=== PATIENT | male | born 1970 | race Caucasian/White ===

== ENCOUNTER 2017-07-11 12:57 | Emergency (ER) | payer BC, SELFPAY | END 2017-07-11 14:03 | disposition home or self-care (01) | PROVIDERS: Emergency Provider Nurse Practitioner; Visit Provider Nurse Practitioner | DX: J06.9 Acute upper respiratory infection, unspecified (principal); I10 Essential (primary) hypertension; E78.5 Hyperlipidemia, unspecified | CPT/HCPCS: 87804; 87880; 99201 ==

== ENCOUNTER → 2017-10-15 13:12 | Outpatient (CLI) | payer BC, SELFPAY ==
--- NOTE | 2017-10-15 13:22 | XR_ITS ---
XR KUB CLINICAL INDICATION: ITS.REASON: KIDNEY STONES ORDERING PHYSICIAN: Nj Nation MD PATIENT AGE: 47 years COMPARISON: 05/28/2017 FINDINGS: The bowel gas pattern is nonspecific. There are multiple small left renal calculi measuring up to 4 mm in the upper pole. No obvious ureteral calculi. IMPRESSION: No change left nephrolithiasis
== END ==
PROVIDERS: PCP Family Medicine; Visit Provider Urology
DX: N20.0 Calculus of kidney (principal)
CPT/HCPCS: 74018

== ENCOUNTER → 2017-10-25 07:56 | Outpatient (CLI) | payer BC, SELFPAY ==
--- NOTE | 2017-10-25 07:58 | CT_ITS ---
CT abdomen pelvis wo con COMPARISON: CT scan abdomen pelvis stone protocol 03/10/2017 HISTORY: Left-sided abdominal pain, history of kidney stones TECHNIQUE: Multiaxial scans obtained from hemidiaphragms the pelvic floor and were performed without IV or oral contrast. Sagittal coronal reformats were evaluated as well. FINDINGS: The lower lung jeter are clear. Cardiac size is normal. The liver and spleen appear grossly normal. The stomach is distended with ingested food particles and the gallbladder is contracted. There are no definite gallstones seen. The pancreas is normal. Again noted is the slightly enlarged left adrenal gland the CT number consistent with a cyst or possibly adenoma. It is unchanged in size from the previous exam. Right adrenal gland is normal. The kidneys are normal in size and there are 3-4 tiny 1 to 2 mm nonobstructing calculi left kidney. There are no calculi right kidney. There is no obstructive uropathy of either kidney. Small bowel appears normal. The appendix is normal. There is moderate scattered stool throughout the colon. The urinary bladder is partially decompressed, the prostate is normal. IMPRESSION: 1. Tiny nonobstructing calculi left kidney 2. Stable slightly enlarged left adrenal gland and again likely benign cyst or adenoma. There is no other significant abdominal or pelvic pathology identified
== END ==
PROVIDERS: Family Provider Family Medicine; PCP Family Medicine; Visit Provider Urology
DX: N20.9 Urinary calculus, unspecified (principal); M54.9 Dorsalgia, unspecified
CPT/HCPCS: 74176

== ENCOUNTER → 2018-04-29 11:24 | Outpatient (CLI) | payer BC, SELFPAY ==
--- NOTE | 2018-04-29 11:25 | XR_ITS ---
XR KUB HISTORY: ITS.REASON: Kidney Stones ORDERING PHYSICIAN: Nj Nation MD PATIENT AGE: 47 years COMPARISON: 04/29/2018 FINDINGS: The bowel gas pattern is unremarkable. No obvious obstruction.. There is a 5 mm stone overlying the upper pole of the left kidney and a 1 to 2 mm stone overlying the mid pole the left kidney. No obvious ureteral calculi. There is at least one stone that was present previously overlying the upper pole the left kidney not apparent on today's exam IMPRESSION: Left nephrolithiasis
== END ==
PROVIDERS: PCP Family Medicine; Visit Provider Urology
DX: N20.0 Calculus of kidney (principal); N39.9 Disorder of urinary system, unspecified
CPT/HCPCS: 74018

== ENCOUNTER → 2018-10-14 10:38 | Outpatient (CLI) | payer BC, SELFPAY ==
--- NOTE | 2018-10-14 10:41 | XR_ITS ---
XR KUB HISTORY: ITS.REASON: kidney stones ORDERING PHYSICIAN: Nj Nation MD PATIENT AGE: 48 years COMPARISON: 10/15/2017 FINDINGS: The bowel gas pattern is unremarkable. No obvious obstruction.. There are multiple left renal calculi overlying the lower, mid and upper pole of the left kidney with the largest stone in the upper pole measuring up to 6 x 3 mm. No obvious ureteral calculi. IMPRESSION: Left nephrolithiasis not significantly changed
== END ==
PROVIDERS: PCP Family Medicine; Visit Provider Urology
DX: N20.0 Calculus of kidney (principal)
CPT/HCPCS: 74018

== ENCOUNTER → 2019-03-30 07:54 | Outpatient (CLI) | payer BC, SELFPAY ==
--- NOTE | 2019-03-30 08:00 | US_ITS ---
PROCEDURE: US ABDOMEN LIMITED CLINICAL INDICATION: LUQ PAIN COMPARISON: No exams were available for comparison FINDINGS: There is borderline splenomegaly at 13 by 9 cm. No splenic lesions are evident. No perisplenic fluid collection. Left kidney has an unremarkable appearance. No hydronephrosis or mass. IMPRESSION: Borderline splenomegaly otherwise negative Dictated by: Adeel Almonte MD 03/30/2019 16:07 Electronically signed by Adeel Almonte MD in [place] 03/30/2019 16:07
== END ==
PROVIDERS: PCP Family Medicine; Visit Provider Physician Assistant
DX: R10.12 Left upper quadrant pain (principal)
CPT/HCPCS: 76705

== ENCOUNTER → 2019-04-28 12:01 | Outpatient (CLI) | payer BC, SELFPAY ==
--- NOTE | 2019-04-28 12:05 | XR_ITS ---
PROCEDURE: XR KUB CLINICAL INDICATION: kidney stones Left flank pain COMPARISON: ABDPELWO CT abdomen pelvis wo con from 10/25/2017 FINDINGS: There are multiple left renal calculi including a 5 x 3 and a 4 x 2 mm calculus in the upper pole of the left kidney as well as a 2 mm calculus in the mid polar region. No obvious ureteral calculi. IMPRESSION: Left nephrolithiasis Dictated by: Adeel Almonte MD 04/28/2019 12:38 Electronically signed by Adeel Almonte MD in [place] 04/28/2019 12:38
--- NOTE | 2019-04-28 13:36 | CT_ITS ---
PROCEDURE: CT ABDOMEN PELVIS WO CON CLINICAL HISTORY: kidney stone Left upper quadrant and left-sided flank pain. COMPARISON: [facility] CT abdomen pelvis wo con from 10/25/2017 TECHNIQUE: Axial images obtained with sagittal and coronal reformats. All CT scans at the facility use one or more dose reduction, viz: automated exposure control, ma/kV adjustment per patient size (including targeted exams where dose is matched to indication, i.e. head), or iterative reconstruction technique. FINDINGS: No acute finding in the lung bases. Coronary artery calcifications are present. The liver, spleen, right adrenal gland, and pancreas have an unremarkable appearance. There is a 2 cm left adrenal nodule measuring near water density unchanged consistent with an adenoma. There is a lobular contour to both kidneys with bilateral renal calculi. A 2 mm stone is present in the upper pole of the right kidney. There are multiple left renal calculi measuring up to 7 mm in the upper pole. No ureteral calculi. No hydronephrosis. No evidence of appendicitis, intestinal obstruction, free air, or diverticulitis. No pelvic mass abnormal fluid collection or focal inflammatory change of the pelvis a small sclerotic focus is present in the right aspect of the sacrum consistent with a bone island unchanged. No acute bony findings. IMPRESSION: Bilateral nephrolithiasis. No ureteral calculi. No change with no acute finding No change left adrenal nodule consistent with an adenoma Dictated by: Adeel Almonte MD 04/29/2019 10:38 Electronically signed by Adeel Almonte MD in [place] 04/29/2019 10:38
== END ==
PROVIDERS: PCP Family Medicine; Visit Provider Urology
DX: N20.0 Calculus of kidney (principal)
CPT/HCPCS: 74018; 74176

== ENCOUNTER → 2019-04-29 10:33 | Outpatient (CLI) | payer BC, SELFPAY ==
--- NOTE | 2019-04-29 10:44 | ECG_ITS ---
APPROVED REPORT Exam: Resting ECG HR:70 bpm ECG Measurements Heart Rate 70 AXES MS 156 P 24 QRSd 80 QRS 10 QT 374 T 21 QTc 403 <Conclusion> Normal sinus rhythm Normal ECG Electronically signed by : Wagner Watson, 04/29/2019 11:33:35
[2019-04-29 11:23] LABS: Basophils # 0.1 K/mm3 (0-0.2); Basophils % 0.8 % (0.1-2.0); Eosinophils # 0.2 K/mm3 (0.0-0.4); Eosinophils % 2.1 % (0.1-12.0); Hemoglobin 16.5 g/dL (14.1-18.0); Lymphocytes # 1.7 K/mm3 (0.7-4.5); Lymphocytes % 20.6 % (10-50); Mean Corpuscular HGB Conc 31.2 g/dL (31.8-35.4); Mean Corpuscular Hemoglobin 29.7 pg (27.0-31.2); Mean Platelet Volume 7.9 fl (7.4-10.4); Monocytes # 0.5 K/mm3 (0.1-1.0); Monocytes % 6.4 % (1.7-9.3); Neutrophils # 5.9 K/mm3 (1.8-7.8); Neutrophils % 70.2 % (37.0-80.0); Platelet Count 215 K/mm3 (142-424); Red Blood Count 5.58 M/mm3 (4.60-6.20); Red Cell Distribution Width 13.6 % (11.5-17.5); White Blood Count 8.4 K/mm3 (4.8-10.8)
[2019-04-29 12:37] LABS: Alanine Aminotransferase 22 U/L (12-78); Albumin Level 3.5 gm/dL (3.4-5.0); Albumin/Globulin Ratio 0.9 (1.1-1.8); Alkaline Phosphatase 132 U/L (46-116); Anion Gap 8.2 mEq/L (5-15); Aspartate Amino Transferase 15 U/L (15-37); Bilirubin,Total 0.9 mg/dL (0.2-1.0); Blood Urea Nitrogen 19 mg/dL (7-18); CKMB Relative Index 1.2 U/L (0-4.0); Calcium 9.2 mg/dL (8.5-10.1); Carbon Dioxide 34 mmol/L (21.0-32.0); Chloride 102 mmol/L (98-107); Creatine Kinase 41 U/L (39-308); Creatine Kinase MB 0.5 ng/ml (0.0-3.6); Creatinine,Serum 1.44 mg/dL (0.70-1.30); Estimated Glomerular Filt Rate 52 ml/min (>60); GFR (African American) 63 ML/MIN (>60); Glucose 106 mg/dL (74-106); Potassium 5.2 mmoL/L (3.5-5.1); Sodium 139 mmol/L (136-145); Total Protein,Serum 7.5 gm/dL (6.4-8.2); Troponin I < 0.02 ng/ml (0.00-0.06)
== END ==
PROVIDERS: PCP Family Medicine; Visit Provider Physician Assistant
DX: R07.9 Chest pain, unspecified (principal); R10.12 Left upper quadrant pain
CPT/HCPCS: 36415; 80053; 82550; 82553; 84484; 85025; 93005

== ENCOUNTER → 2019-05-06 08:39 | Outpatient (CLI) | payer BC, SELFPAY ==
--- NOTE | 2019-05-06 08:47 | FL_ITS ---
PROCEDURE: FL UPPER GI SMALL BOWEL CLINICAL INDICATION: LEFT UPPER QUAD PAIN COMPARISON: CT ABDOMEN PELVIS WO CON from 04/28/2019 TECHNIQUE: FLUOROSCOPY TIME : 2 minutes and 30 seconds FINDINGS: The esophagus, stomach, and duodenum have an unremarkable appearance.There is a small sliding hiatal hernia with Valsalva. There is a small amount of reflux noted. No ulcer or mass evident. No mucosal abnormalities apparent. There is normal peristalsis. The duodenal C-loop is nondisplaced. Examination of the small bowel is unremarkable. No mass, mucosal abnormality, or obstructing lesion is evident. The mailing machine operator exam shows several small left renal calculi the largest measuring approximately 4 mm. IMPRESSION: 1. Left nephrolithiasis. 2. Small sliding hiatal hernia with mild reflux 3. Otherwise negative upper GI with small-bowel follow-through Dictated by: Adeel Almonte MD 05/06/2019 18:58 Electronically signed by Adeel Almonte MD in [place] 05/06/2019 18:58
== END ==
PROVIDERS: PCP Family Medicine; Visit Provider Physician Assistant
DX: R07.9 Chest pain, unspecified (principal); R10.12 Left upper quadrant pain
CPT/HCPCS: 74245

== ENCOUNTER → 2019-05-07 07:44 | Outpatient (CLI) | payer BC, SELFPAY ==
--- NOTE | 2019-05-07 | CA_ITS ---
APPROVED REPORT Exam: Exercise Treadmill Technologist: Hoang Hoover, Ht: 5 ft 9 in Wt: 280 lbs BSA: 2.38 m2 HR: 71 bpm BP: 115/77 mmHg Rhythm: NSR Indications: Chest pain Medical History Medical History: Hyperlipidemia, HTN Medications: Lisinopril,,,,, AtorvaASTATIN,,,,, Allergies: No known drug allergies Cardiac Risk Factors: HTN, Hyperlipidemia Stress Test Details Test: Zee HR Resting HR: 93 bpm Max Heart Rate (APMHR): 171 bpm Max HR Achieved: 165 bpm Target HR (85% APMHR): 145 bpm % of APMHR: 96 Recovery HR: 138 bpm BP Resting BP: 129.0/79.0 mmHg Max BP: 180.0/78.0 mmHg Recovery BP: 132.0/80.0 mmHg ECG Resting ECG: NSR Clinical Reason for Termination: SOA,FATIGUE Stress Symptoms: O Exercise duration: 07:24 min Highest Stage Achieved: Exercise capacity: 10.1 METs Stress ECG Conclusion PATIENT EXERCISED 7:24 ON ZEE PROTOCOL WITH MAX HEART OF 165 BPM. MAX BP 180/78. METS = 10.1. TEST STOPPED DUE TO SOA AND FATIGUE. NO CHANGES IN MILD PRETEST CHEST PAIN WITH EXERCISE. RARE PVC ,[address] NORMAL [address] RESPONSE TO EXERCISE, NORMAL GXT. GXT ONLY (NO IMAGING) Test Summary RECOVERY 06:08 0.0 0.0 107 . 118/ 75 . . REST . . . . . . . Standing REST 14:28 0.0 1.2 93 . 129/ 79 . . Stage 1 01:00 10.0 1.7 112 . . . . Stage 1 02:00 10.0 1.7 119 . . . . Stage 1 03:00 10.0 1.7 126 . 158/ 76 . . Stage 2 01:00 12.0 2.5 133 . . . . Stage 2 02:00 12.0 2.5 139 . . . . Stage 2 03:00 12.0 2.5 149 . 180/ 78 . . Stage 3 01:00 14.0 3.4 161 . . . . Stage 3 01:24 14.0 3.4 165 . . . Stop exercise at 07:24 RECOVERY 01:00 0.0 0.0 138 . . . . RECOVERY 02:00 0.0 0.0 128 . 132/ 80 . . RECOVERY 03:00 0.0 0.0 115 . 132/ 80 . . RECOVERY 04:00 0.0 0.0 106 . 136/ 74 . . RECOVERY 05:00 0.0 0.0 107 . 106/ 72 . . RECOVERY 06:00 0.0 0.0 108 . 118/ 75 . . RECOVERY 06:08 0.0 0.0 107 . 118/ 75 . . Electronically signed by : Lucien Guzman, 05/07/2019 15:25:22
== END ==
PROVIDERS: PCP Family Medicine; Visit Provider Physician Assistant
DX: R07.9 Chest pain, unspecified (principal); R10.12 Left upper quadrant pain
CPT/HCPCS: 93017

== ENCOUNTER → 2019-05-15 07:59 | Outpatient (CLI) | payer BC, SELFPAY ==
--- NOTE | 2019-05-15 08:03 | US_ITS ---
PROCEDURE: US ABDOMEN LIMITED CLINICAL INDICATION: ABD PAIN COMPARISON: US ABDOMEN LIMITED from 03/30/2019 FINDINGS: PANCREAS: Pancreas is poorly demonstrated due to overlying bowel gas and patient's body habitus. LIVER: No focal liver lesions demonstrated. Homogeneous echogenicity. No intrahepatic biliary ductal dilatation evident. There is appropriate direction of blood flow within a non dilated portal vein RIGHT KIDNEY: Unremarkable. Normal size and echogenicity. No hydronephrosis GALLBLADDER: No gallstones, gallbladder wall thickening, pericholecystic fluid, or biliary dilatation. IMPRESSION: Unremarkable limited abdominal ultrasound as detailed above disc Dictated by: Adeel Almonte MD 05/15/2019 16:30 Electronically signed by Adeel Almonte MD in [place] 05/15/2019 16:30
== END ==
PROVIDERS: PCP Family Medicine; Visit Provider Physician Assistant
DX: R10.9 Unspecified abdominal pain (principal)
CPT/HCPCS: 76705

== ENCOUNTER → 2020-08-08 12:03 | Outpatient (CLI) | payer BC, SELFPAY ==
--- NOTE | 2020-08-08 12:09 | XR_ITS ---
PROCEDURE: XR CERVICAL SPINE 3V CLINICAL INDICATION: RADICULAR PAIN IN LEFT ARM COMPARISON: No exams were available for comparison FINDINGS: There is normal alignment. The C-spine is only visualized to the C5-C6 level on the lateral view with a faint outline of C6 and swimmer's view showing a faint outline C6 and C7. The posterior elements of C6 and C7 are not well delineated. Of the visualized cervical spine no fracture or dislocation. No lytic or blastic change. IMPRESSION: Incomplete visualization of the cervical spine. The C-spine to the C5-C6 level has an unremarkable appearance. Dictated by: Adeel Almonte MD 08/08/2020 12:54 Adeel Almonte MD in [place] 08/08/2020 12:54
--- NOTE | 2020-08-08 12:09 | XR_ITS ---
PROCEDURE: XR SHOULDER LT MIN 2V CLINICAL INDICATION: RADICULAR PAIN IN LEFT ARM COMPARISON: No exams were available for comparison FINDINGS: No fracture or dislocation. No lytic or blastic change. There is normal mineralization. There are mild osteoarthritic changes of the acromioclavicular and glenohumeral joint. Other findings:Mild subacromial stenosis with downsloping of the acromion laterally IMPRESSION: Mild osteoarthritic change with subacromial stenosis otherwise negative Dictated by: Adeel Almonte MD 08/08/2020 12:56 Adeel Almonte MD in [place] 08/08/2020 12:56
== END ==
PROVIDERS: PCP Family Medicine; Visit Provider Physician Assistant
DX: M79.2 Neuralgia and neuritis, unspecified (principal); M54.2 Cervicalgia; M25.512 Pain in left shoulder
CPT/HCPCS: 72040; 73030

== ENCOUNTER → 2020-08-16 11:01 | Outpatient (CLI) | payer BC, SELFPAY ==
--- NOTE | 2020-08-16 11:05 | MR_ITS ---
PROCEDURE: MR SHOULDER LT WO CON CLINICAL INDICATION: RADICULAR PAIN IN LEFT ARM LT SIDED NECK PAIN WITH PAIN IN LT SHOULDER. [id number]. NO INJURY. PRIOR X-RAY 08-08-20 COMPARISON: DX XR SHOULDER LT MIN 2V from 08/08/2020 TECHNIQUE: Routine multiplanar multi echo sequences are performed without gadolinium enhancement. FINDINGS: Osteoarthritic changes are present at the acromioclavicular and glenohumeral joint. There is mild subacromial stenosis. There is impingement upon the supraspinatus musculotendinous junction. No evidence tear of the supraspinatus or infraspinatus tendons. There is slight increase in PD signal intensity distally suggesting tendinopathy/tendinosis. The teres minor tendon has an unremarkable appearance. There is mild tendinopathy/tendinosis of the subscapularis tendon distally. Bicipital tendon is in place. No evidence of labral tear. No significant effusions. There is some decreased T2 signal involving the humeral head and the greater tuberosity region of the humerus and may be due to heterogeneous red marrow replacement by fatty marrow. This is hyperintense on T1 as 1 would expect for fat signal.. There is some fluid signal intensity within the bicipital tendon sheath which may reflect tenosynovitis. IMPRESSION: 1. No evidence of rotator cuff tear. 2. Mild tendinopathy/tendinosis of the supraspinatus infraspinatus and subscapularis tendons. 3. Osteoarthritic changes of the AC joint and glenohumeral joint with acromioclavicular hypertrophy and with impingement upon the musculotendinous junction of the supraspinatus tendon. 4. Possible tenosynovitis of the bicipital tendon Dictated by: Adeel Almonte MD 08/17/2020 13:34 Adeel Almonte MD in [place] 08/17/2020 13:34
== END ==
PROVIDERS: PCP Family Medicine; Visit Provider Physician Assistant
DX: M75.42 Impingement syndrome of left shoulder (principal); M79.2 Neuralgia and neuritis, unspecified
CPT/HCPCS: 73221

== ENCOUNTER → 2020-08-31 12:48 | Outpatient (CLI) | payer BC, SELFPAY ==
--- NOTE | 2020-08-31 12:52 | MR_ITS ---
PROCEDURE: MR CERVICAL SPINE WO CON CLINICAL INDICATION: NECK PAIN LT SIDED NECK PAIN. LT ARM PAIN, NUMBNESS, AND TINGLING. SYMPTOMS X2 MONTHS. FELT A POP IN NECK. COMPARISON: DX XR CERVICAL SPINE 3V from 08/08/2020 TECHNIQUE: Standard multiplanar multiecho sequences are performed without contrast. 3-D MIP and myelographic images are also rendered and reviewed FINDINGS: There is straightening of the cervical lordosis. This may be due to patient positioning or muscle spasm. The craniocervical junction has an unremarkable appearance. C2-C3: Unremarkable. There is mild prominence of the posterior longitudinal ligament without impingement. C3-C4: Mild prominence of the posterior longitudinal ligament without impingement. C4-C5: Unremarkable. C5-C6: There is a small broad-based central and right paracentral disc protrusion which abuts the anterior right aspect of the cord causing some mild flattening of the cord anteriorly on the right with resultant canal stenosis of 8 mm. There is right lateral recess and foraminal narrowing and mild left-sided foraminal narrowing. C6-C7 and C7-T1 have an unremarkable appearance. IMPRESSION: There is a small broad-based central and right paracentral disc protrusion at C5-C6 which abuts the anterior and right aspect of the cord causing some mild flattening of the cord anteriorly on the right with resultant canal stenosis of 8 mm. There is right lateral recess and foraminal narrowing and mild left-sided foraminal narrowing Straightening of the cervical lordosis. Dictated by: Adeel Almonte MD 09/01/2020 20:59 Adeel Almonte MD in [place] 09/01/2020 20:59
== END ==
PROVIDERS: PCP Family Medicine; Visit Provider Orthopaedic Surgery
DX: M54.2 Cervicalgia (principal)
CPT/HCPCS: 72141; 76376

== ENCOUNTER 2021-01-13 12:01 | Emergency (ER) | payer BC, SELFPAY ==
[2021-01-13 12:06] VITALS: BP 155/92; PULSE 92; RESP 16; TEMP 36.7; O2SAT 99; BMI 41.3
--- NOTE | 2021-01-13 12:16 | HMH.EDUTC ---
[facility] [place] Disposition Clinical Impression: Sinusitis Qualifiers: Sinusitis location: unspecified location Chronicity: acute Recurrence: non-recurrent Qualified Code(s): J01.90 - Acute sinusitis, unspecified Disposition: Home, Self-Care Condition on Discharge: Good Instructions: DI for Sinusitis Additional Instructions: Drink plenty of fluids. Take tylenol or ibuprofen for pain or fever. Take the medications as directed. Follow up with your regular doctor. GO TO THE ER FOR ANY WORSENING SYMPTOMS Prescriptions: Benzonatate [Tessalon Perle 100mg Cap] 100 mg PO TIDP PRN #30 cap PRN Reason: Cough Transmission Status: Received by [facility] Azithromycin [Z-Chris 250mg Tab*] 250 mg PO UD DOSE PK #6 tab Transmission Status: Received by [facility] Referrals: Marily De La Rosa MD [Primary Care Provider] - Forms: Work/School Release Time of Disposition: 12:22 Medical Decision Making - Medical Records Medical records reviewed: No: I reviewed the patient's medical records. - Arsenio Inquiry Pt receiving controlled substance: No Vital Signs: 01/13/21 12:06 01/13/21 12:55 Temperature 98.1 F 98.4 F Temperature Source Oral Pulse Rate 92 H Pulse Rate [Right] 92 H Respiratory Rate 16 16 Blood Pressure 155/92 H Blood Pressure [Right Arm] 155/92 H Blood Pressure Mean [Right Arm] 113 02 Sat by Pulse Oximetry 99 Oxygen Delivery Method Room Air Orders (Tests/Meds): ORDERS Category Date Time Status Covid-19 Nasal PCR ([facility]) Routine Lab 01/13/21 12:10 Received [facility] HPI - General Stated complaint: covid test Time Seen by Provider: 01/13/21 12:16 - History of Present Illness Provider Complaint: He states that he has sore throat and sinus congestion for the past 2 days. He denies any known covid exposure. He has not been vaccinated against covid-19. He denies any shortness of breath or chest pain. - Related Data Home Medications Medication Instructions Recorded Confirmed atorvastatin 40 mg tablet 40 mg PO DAILY tab 10/15/17 04/28/19 lisinopril 20 1 tab PO DAILY tab 10/15/17 04/28/19 mg-hydrochlorothiazide 12.5 mg tablet Previous Rx's Medication Instructions Recorded Amoxicillin/Potassium Clav 1 tab PO Q12H #14 tab 12/06/18 [Augmentin 875-125 Tablet] Azithromycin [Z-Chris 250mg Tab*] 250 mg PO UD DOSE PK #6 tab 01/13/21 Benzonatate [Tessalon Perle 100mg 100 mg PO TIDP PRN #30 cap 01/13/21 Cap] Allergies Allergy/AdvReac Type Severity Reaction Status Date / Time No Known Allergies Allergy Verified 04/28/19 12:42 [facility] History - Hepatitis A Screen Attestation statement:: This patient has been screened for Hepatitis A risk factors. I have reviewed the patient's past medical history: Yes Medical History: Reports:: Hyperlipidemia, Hypertension Laterality Cases: Left: Other Other Surgeries: Yes: Ureter Stent - Social History Smoking Status: Unknown if ever smoked Alcohol Intake: never Occupational Status: employed Family Hx:: Hyperlipidemia, Heart Attack, Hypertension ROS Obtained: Yes All systems reviewed & no additional complaints - Constitutional Constitutional: Reports as per HPI - Eyes Eyes: Reports system reviewed and no additional complaints, except as docu - ENT Ears, Nose, Mouth, and Throat: Reports as per HPI - Cardiovascular Cardiovascular: Denies chest pain - Respiratory Respiratory: Reports as per HPI Physical Exam - General General appearance: alert, in no apparent distress - Head Head exam: atraumatic, normocephalic, normal inspection - Eye Eye exam: Present: normal appearance, PERRL, EOMI - ENT ENT exam: Present: mucous membranes moist, normal external ear exam - Expanded ENT Exam TM/Canal exam: Bilateral TM: erythema, bulging Nose exam: Present: sinus tenderness Mouth exam: Present: normal external inspection Teeth exam: Present: normal inspection Throat exam: Present: tonsillar eryth
[2021-01-13 12:55] VITALS: BP 155/92; PULSE 92; RESP 16; TEMP 36.9
== END 2021-01-13 12:59 | disposition home or self-care (01) ==
PROVIDERS: Emergency Provider Nurse Practitioner Family; PCP Family Medicine
DX: J01.90 Acute sinusitis, unspecified (principal); I10 Essential (primary) hypertension; E78.5 Hyperlipidemia, unspecified
CPT/HCPCS: 99202; G0463; U0003

== ENCOUNTER 2021-05-01 11:43 | Emergency (ER) | payer BC, SELFPAY ==
[2021-05-01 13:10] VITALS: BP 138/76; PULSE 74; RESP 21; TEMP 37.5; O2SAT 97; BMI 36.7
--- NOTE | 2021-05-01 13:38 | HMH.EDUTC ---
[facility] [place] [facility] [place] Clinical Impression: URI (upper respiratory infection) Qualifiers: URI type: unspecified URI Qualified Code(s): J06.9 - Acute upper respiratory infection, unspecified Disposition: Home, Self-Care Condition on Discharge: Good Instructions: DI for Cough -- Adult, DI for Viral Syndrome, Ondansetron Additional Instructions: *Monitor Temp, Over the counter Motrin or Tylenol as directed/as needed Tylenol every 4 hours and Motrin every 6 hours (as long as your family doctor has told you that you can take it) for fever or pain. and straight to ER if unable to lower temp less than 101.0 after medication given *Warm salt water gargles may help to soothe the throat *Throat Lozenges *Warm fluids like tea with honey may help to soothe the throat *Sleep elevated *Humidifier/Vaporizer Your throat swab was sent for culture. Those results are typically sent to your primary care. Be sure to follow up in 2-3 days with your family doctor/primary care physician if no improvement so they can review those result and treat if necessary. If you don?t have a primary care doctor, I recommend you get one but in the mean time, you will have to return to a walk in clinic Follow up IMMEDIATELY for new or worsening symptoms or no Noticeable improvement over the next 48-72 hours. 911 for difficulty breathing or swallowing You were tested for today for COVID19 your test result should be back in the next 24-48 hours, you was given handout on how to log onto the [facility] portal to get your results if you have trouble logging on you may call the [facility] You was given a handout with instructions for Self Quarantine and Self isolation for while you wait on test results and what to do if they are positive If you are positive the Health Dept will be contacting you also Make sure to take your Vitamins Vit. C Vit D and Zinc if you can take them Prescriptions: Cefdinir [Omnicef 300mg Capsule] 300 mg PO BID #20 cap Transmission Status: Pending to [facility] Benzonatate [Tessalon Perle 100mg Cap*] 100 mg PO TID PRN #30 cap PRN Reason: Cough Transmission Status: Sent to [facility] Ondansetron [Zofran 4mg ODT] 4 mg PO TIDP PRN #12 tab PRN Reason: Nausea Transmission Status: Sent to [facility] Referrals: Marily De La Rosa MD [Primary Care Provider] - As needed Forms: Work/School Release Time of Disposition: 13:58 Medical Decision Making - Arsenio Inquiry Pt receiving controlled substance: No Arsenio was queried for this patient: No Vital Signs: 05/01/21 13:10 Temperature 99.5 F Temperature Source Oral Pulse Rate [Right Brachial] 74 Respiratory Rate 21 Blood Pressure [Right Arm] 138/76 Blood Pressure Mean [Right Arm] 96 Blood Pressure Source [Right Arm] Automatic Cuff Blood Pressure Position [Right Arm] Sitting 02 Sat by Pulse Oximetry 97 Oxygen Delivery Method Room Air - Lab Data Lab results reviewed: Yes: I reviewed the patient's lab results. Lab Results 05/01/21 13:23: Strep Scn Rapid Clinic Negative Orders (Tests/Meds): ORDERS Category Date Time Status Covid-19 Nasal PCR ([facility]) Routine Lab 05/01/21 13:15 Received Strep Screen Confirmation Stat Micro 05/01/21 13:23 Received H UTC HPI - General Stated complaint: Cough, headache, nausea Time Seen by Provider: 05/01/21 13:39 Mode of Arrival: Ambulatory Source of Information: Patient Limitations: No Limitations Description of Symptoms (Recalled from Triage Doc. by RN): PATIENT C/O COUGH, CHILLS, NAUSEA AND DIARRHEA SINCE SATURDAY HEENT Symptoms (Recalled from RN notes): No Resp Symptoms (Recalled from RN notes): Yes Skin Symptoms (Recalled from RN notes): No MS Symptoms (Recalled from RN notes): No Functional Status (Recalled from RN notes): WNL - History of Present Illness Provider Complaint: Patient states that he woke up Saturday with fever, and since then has been having sore throat, fever, chills, body aches N/V/D State
[2021-05-01 13:41] LABS: UTC Strep Screen (Rapid) Negative (Negative)
[2021-05-01 14:06] VITALS: BP 138/76; PULSE 74; RESP 21; TEMP 37.5; O2SAT 97
== END 2021-05-01 14:14 | disposition home or self-care (01) ==
PROVIDERS: Emergency Provider Nurse Practitioner; PCP Family Medicine
DX: R05.9 Cough, unspecified (principal); U07.1 COVID-19
CPT/HCPCS: 87880; 99203; C9803; G0463; U0003; U0005

== ENCOUNTER 2021-05-08 10:47 | Emergency (ER) | payer BC, SELFPAY ==
[2021-05-08 10:58] VITALS: BP 145/93; PULSE 98; RESP 16; TEMP 37; O2SAT 95; BMI 38.4
--- NOTE | 2021-05-08 11:00 | XR_ITS ---
PROCEDURE: XR CHEST PORTABLE CLINICAL HISTORY: SOA; COVID + COMPARISON: No exams were available for comparison FINDINGS: The cardiomediastinal silhouette and pulmonary vascularity are within normal limits. There is moderate patient rotation to the right in there are low lung volumes. There is an area of consolidation in the right upper lobe medially suspicious for pneumonia. Follow-up is recommended of this area pulmonary mass would be included in the differential diagnosis. This region measures approximately 2.4 cm. Infiltrate is also suspected in the right mid and lower lung zone laterally. Faint infiltrate may also be in the right lower lobe. Suggest follow-up to confirm resolution or stability. No acute bony abnormalities. IMPRESSION: Bilateral faint infiltrates suggesting Covid19 pneumonia with consolidation versus mass in the right upper lobe medially. Follow-up recommended. Dictated by: Adeel Almonte MD 05/08/2021 11:38 Adeel Almonte MD in [place] 05/08/2021 11:38
--- NOTE | 2021-05-08 11:48 | HMH.EDUTC ---
[facility] [place]ression: COVID-19, Viral pneumonia Disposition: Home, Self-Care Condition on Discharge: Good Instructions: Pneumonia-Adult, DI for COVID-19 (Suspected or Confirmed ), Preventing the Spread of Coronavirus Discharge Instructions Additional Instructions: Drink plenty of fluids. Take tylenol or ibuprofen for pain or fever. Take the medications as directed. Follow up with your regular doctor. GO TO THE ER FOR ANY WORSENING SYMPTOMS Follow up with your primary care physician. Please call them today once you get home and let them know that you have a viral pneumonia associated with Covid-19. You are scheduled to get the REGEN-COV infusion tomorrow to try to help you get over this pneumonia. Make sure you follow up with your primary care physician to go over your chest x-ray results and to have it repeated or have a ct scan done. Prescriptions: Albuterol Sulfate [Albuterol Sulfate Hfa] 2 puffs IH Q6HP PRN 30 Days #1 each PRN Reason: Shortness Of Breath Transmission Status: Received by [facility] [employer] dexAMETHasone [Decadron] 6 mg PO DAILY 6 Days #6 tab Transmission Status: Received by [facility] Azithromycin [Z-Chris 250mg Tab*] 250 mg PO UD DOSE PK #6 tab Transmission Status: Received by [facility] Referrals: Marily De La Rosa MD [Primary Care Provider] - Forms: Work/School Release Time of Disposition: 13:31 Medical Decision Making - Medical Records Medical records reviewed: No: I reviewed the patient's medical records. - Arsenio Inquiry Pt receiving controlled substance: No Vital Signs: 05/08/21 10:58 05/08/21 13:43 Temperature 98.6 F 98.6 F Temperature Source Oral Oral Pulse Rate 80 Pulse Rate [Right] 98 H Respiratory Rate 16 16 Blood Pressure 138/70 Blood Pressure [Right Arm] 145/93 H Blood Pressure Mean [Right Arm] 110 Blood Pressure Source Automatic Cuff Blood Pressure Source [Right Arm] Automatic Cuff Blood Pressure Position Sitting Blood Pressure Position [Right Arm] Sitting 02 Sat by Pulse Oximetry 95 Oxygen Delivery Method Room Air Room Air Orders (Tests/Meds): ED MEDICATIONS Discontinued Medications Generic Name Dose Route Start Last Admin Trade Name Freq PRN Reason Stop Dose Admin Sodium Chloride 1,000 mls @ 999 mls/hr 05/08/21 13:00 05/08/21 13:02 Sod Chlor 0.9% 1000ml Bag IV 05/08/21 14:00 999 mls/hr .Q1H1M [facility] Administration - Radiology Data #1 Image(s): Chest Image Reviewed: Yes I reviewed the patient's radiology image, Yes I have reviewed radiologist's interpretation Preliminary Findings: Abnormal PROCEDURE: XR CHEST PORTABLE CLINICAL HISTORY: SOA; COVID + COMPARISON: No exams were available for comparison FINDINGS: The cardiomediastinal silhouette and pulmonary vascularity are within normal limits. There is moderate patient rotation to the right in there are low lung volumes. There is an area of consolidation in the right upper lobe medially suspicious for pneumonia. Follow-up is recommended of this area pulmonary mass would be included in the differential diagnosis. This region measures approximately 2.4 cm. Infiltrate is also suspected in the right mid and lower lung zone laterally. Faint infiltrate may also be in the right lower lobe. Suggest follow-up to confirm resolution or stability. No acute bony abnormalities. IMPRESSION: Bilateral faint infiltrates suggesting Covid19 pneumonia with consolidation versus mass in the right upper lobe medially. Follow-up recommended. Dictated by: Adeel Almonte MD 05/08/2021 11:38 Adeel Almonte MD in [place] 05/08/2021 11:38 [facility] [place] - General Stated complaint: soa, nausea Time Seen by Provider: 05/08/21 11:48 Mode of Arrival: Ambulatory Source of Information: Patient Limitations: No Limitations Description of Symptoms (Recalled from Triage Doc. by RN): pt advises he tested positive for covid last w
--- NOTE | 2021-05-08 12:57 | PC.NURSE ---
pt with covid pneumonia, sats 95%. Refuses to go to ER at this time. Spoke with Junito about the regen-cov infusion and advised pt met criteria and would be A good candidate. Junito agreeable and wrote order for infusion. Pt scheduled to come ytomorrow morning at 8am. IV started at this time and pt given liter of fluids.
[2021-05-08 13:43] VITALS: BP 138/70; PULSE 80; RESP 16; TEMP 37; O2SAT 95
== END 2021-05-08 13:44 | disposition home or self-care (01) ==
PROVIDERS: Emergency Provider Nurse Practitioner Family; PCP Family Medicine
DX: J12.9 Viral pneumonia, unspecified (principal); U07.1 COVID-19
CPT/HCPCS: 71045; 96365; 99202; G0463

== ENCOUNTER 2021-05-09 07:51 | Outpatient (CLI) | payer BC, SELFPAY ==
[2021-05-09] VITALS (9 sets, daily range): BP systolic 128–132; BP diastolic 70–86; PULSE 60–88; RESP 16; TEMP 37; O2SAT 94–96
[2021-05-18 10:21] VITALS: BMI 38.7
== END 2021-05-09 11:08 | disposition home or self-care (01) ==
PROVIDERS: PCP Family Medicine; Visit Provider Family Medicine
DX: U07.1 COVID-19 (principal); Z23 Encounter for immunization
CPT/HCPCS: 96365

== ENCOUNTER 2022-01-27 08:07 | Emergency (ER) | payer BC, SELFPAY ==
[2022-01-27 08:20] VITALS: BP 140/90; PULSE 73; RESP 19; TEMP 36.7; O2SAT 98; BMI 38.4
--- NOTE | 2022-01-27 08:22 | XR_ITS ---
PROCEDURE INFORMATION: Exam: XR Right Hand Exam date and time: 01/27/2022 8:36 AM Age: 51 years old Clinical indication: Pain; Hand; Right; Additional info: Pain and swelling around palm and thumb TECHNIQUE: Imaging protocol: Radiologic exam of the Right hand. Views: 3 or more views. COMPARISON: No relevant prior studies available. FINDINGS: Bones/joints: No evidence of an acute fracture or dislocation. Mild osteoarthritic changes. Soft tissues: Soft tissue swelling. IMPRESSION: No evidence of an acute fracture or dislocation.
--- NOTE | 2022-01-27 09:14 | HMH.EDUTC ---
[facility] [place] Clinical Impression: Gamekeeper's thumb, right Qualifiers: Encounter type: initial encounter Qualified Code(s): S63.641A - Sprain of metacarpophalangeal joint of right thumb, initial encounter Disposition: Home, Self-Care Condition on Discharge: Good Instructions: Ulnar Collateral Ligament Sprain of Thumb Additional Instructions: Follow up with Dr De La Rosa/Ortho Saturday morning. Additional testing may be needed to confirm ligament injury. Wear splint until then. Referrals: Marily De La Rosa MD [Primary Care Provider] - Time of Disposition: 10:00 Medical Decision Making - Arsenio Inquiry Pt receiving controlled substance: No Vital Signs: 01/27/22 08:20 Temperature 98.0 F Temperature Source Oral Pulse Rate [Left Brachial] 73 Respiratory Rate 19 Blood Pressure [Left Arm] 140/90 Blood Pressure Mean [Left Arm] 106 Blood Pressure Source [Left Arm] Automatic Cuff Blood Pressure Position [Left Arm] Sitting 02 Sat by Pulse Oximetry 98 Oxygen Delivery Method Room Air - Radiology Data #1 Image(s): Hand Image Reviewed: Yes I have reviewed radiologist's interpretation Preliminary Findings: Normal/NAD, No Fracture Seen PROCEDURE INFORMATION: Exam: XR Right Hand Exam date and time: 01/27/2022 8:36 AM Age: 51 years old Clinical indication: Pain; Hand; Right; Additional info: Pain and swelling around palm and thumb TECHNIQUE: Imaging protocol: Radiologic exam of the Right hand. Views: 3 or more views. COMPARISON: No relevant prior studies available. FINDINGS: Bones/joints: No evidence of an acute fracture or dislocation. Mild osteoarthritic changes. Soft tissues: Soft tissue swelling. IMPRESSION: No evidence of an acute fracture or dislocation. [facility] [place] HPI - General Stated complaint: ao 01/25, right hand pain Time Seen by Provider: 01/27/22 09:49 Mode of Arrival: Ambulatory Source of Information: Patient Limitations: No Limitations Description of Symptoms (Recalled from Triage Doc. 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 He didn't think much of it at the time but as the day went on it burned, swelled and has restricted ROM. It has gotten worse as the days went on and today he can hardly move his thumb. Onset (ago): day(s) (4) Location: right, upper extremity Quality: burning, aching Consistency: intermittent Relieving factors: immobilization Exacerbating factors: movement Associated symptoms: denies other symptoms Treatments prior to arrival: none - Related Data Home Medications Medication Instructions Recorded Confirmed atorvastatin 40 mg tablet 40 mg PO DAILY tab 10/15/17 05/01/21 lisinopril 20 1 tab PO DAILY tab 10/15/17 05/01/21 mg-hydrochlorothiazide 12.5 mg tablet Previous Rx's Medication Instructions Recorded Benzonatate [Tessalon Perle 100mg 100 mg PO TID PRN #30 cap 05/01/21 Cap*] Cefdinir [Omnicef 300mg Capsule] 300 mg PO BID #20 cap 05/01/21 Ondansetron [Zofran 4mg ODT] 4 mg PO TIDP PRN #12 tab 05/01/21 Brompheniramine/Pseudoephed/Dm 5 ml PO Q6HP PRN #240 ml 05/03/21 [Bromfed Dm Cough Syrup] Albuterol Sulfate [Albuterol 2 puffs IH Q6HP PRN 30 Days #1 each 05/08/21 Sulfate Hfa] Azithromycin [Z-Chris 250mg Tab*] 250 mg PO UD DOSE PK #6 tab 05/08/21 dexAMETHasone [Decadron] 6 mg PO DAILY 6 Days #6 tab 05/08/21 Allergies Allergy/AdvReac Type Severity Reaction Status Date / Time No Known Allergies Allergy
[2022-01-27 10:11] VITALS: BP 140/90; PULSE 73; RESP 19; TEMP 36.7; O2SAT 98
== END 2022-01-27 10:15 | disposition home or self-care (01) ==
PROVIDERS: Emergency Provider Physician Assistant; PCP Family Medicine
DX: S63.641A Sprain of metacarpophalangeal joint of right thumb, initial encounter (principal); M79.641 Pain in right hand; R22.31 Localized swelling, mass and lump, right upper limb; X50.0XXA Overexertion from strenuous movement or load, initial encounter; Y92.73 Farm field as the place of occurrence of the external cause
CPT/HCPCS: 73130; 99212; G0463

== ENCOUNTER → 2022-02-01 12:50 | Outpatient (CLI) | payer BC, SELFPAY ==
--- NOTE | 2022-02-01 12:50 | MR_ITS ---
FINAL REPORT CLINICAL HISTORY: hand pain. POPPING IN THUMB 2 WEEKS AGO WITH NUMBNESS. SWEELING IN THUMB. PAIN ON LATERAL ASPECT OF HAND. FINDINGS: Multiplanar MR imaging was obtained of the right hand with attention to the thumb. There is mild marrow edema identified in the distal 3rd metacarpal. There is degenerative subchondral cyst formation at this location measuring about 6 mm. Axial images demonstrate the flexor and extensor tendons to be intact. There is mild subcutaneous soft tissue edema over the dorsal aspect of the 1st digit. The ulnar collateral ligament appears intact. The radial collateral ligament appears intact. IMPRESSION: Mild soft tissue edema over the lateral margin of the 1st digit. Small osteochondral lesion in the distal 3rd metacarpal.. Reviewed, Interpreted and Dictated by Marco Antonio Angelo MD Transcribed by Jud Alvarez Authenticated and [facility]
== END ==
PROVIDERS: PCP Family Medicine; Visit Provider Orthopaedic Surgery
DX: M79.641 Pain in right hand (principal)
CPT/HCPCS: 73218

== ENCOUNTER → 2022-05-02 13:15 | Outpatient (CLI) | payer BC, SELFPAY ==
--- NOTE | 2022-05-02 13:20 | CT_ITS ---
FINAL REPORT TECHNIQUE: Axial images through the abdomen and pelvis were performed without contrast. This study was performed with techniques to keep radiation doses as low as reasonably achievable, (ALARA). Individualized dose reduction techniques using automated exposure control or adjustment of mA and/or kV according to the patient's size were employed. CLINICAL HISTORY: URINARY CALCULUS, hx of stones with surgery, pain x 1 mos, worse on right COMPARISON: 04/28/2019 FINDINGS: ABDOMEN: There is severe left coronary artery calcification. The lung bases are clear. The heart size is normal. Limited images of the liver are unremarkable. The gallbladder is absent. The spleen is normal. There is a stable left adrenal nodule measuring 20 mm, may represent an adenoma. The aorta is normal in caliber. There is no significant free fluid or adenopathy. There are bilateral nonobstructing renal stones, left greater than right. Largest stone on the left measures 4 mm. There is no hydronephrosis. There is a small low-attenuation mass in the anterior left kidney measuring 15 mm which cannot be accurately characterized without contrast, may represent a cyst. PELVIS: The appendix is unremarkable. No ureteral stones are identified. There is mild vascular calcification. The urinary bladder is unremarkable. There is no significant free fluid or adenopathy. IMPRESSION: Bilateral nephrolithiasis without hydronephrosis. Reviewed, Interpreted and Dictated by Alexx Gallo III, MD Transcribed by Jud Alvarez Authenticated and [facility]
== END ==
PROVIDERS: PCP Family Medicine; Visit Provider Urology
DX: N20.0 Calculus of kidney (principal)
CPT/HCPCS: 74176

== ENCOUNTER → 2023-01-31 15:42 | Outpatient (CLI) | payer BC, SELFPAY ==
--- NOTE | 2023-01-31 15:48 | CT_ITS ---
FINAL REPORT CLINICAL HISTORY: LEFT FLANK PAIN COMPARISON: 05/02/2022 FINDINGS: Axial CT images of the abdomen and pelvis were obtained without intravenous contrast. Coronal reformatted images were also obtained.This study was performed with techniques to keep radiation doses as low as reasonably achievable (ALARA). Individualized dose reduction techniques using automated exposure control or adjustment of mA and/or kV according to the patient's size were employed. Abdomen: The lung bases are clear. The heart is normal in size. The liver has an unremarkable appearance, without evidence of mass or biliary ductal dilatation. Postcholecystectomy. The spleen is unremarkable. Stable left adrenal nodule measuring 20 mm may represent adenoma. The pancreas has an unremarkable appearance. Small probable cysts in the right kidney. No right renal stone or hydronephrosis. There are several nonobstructing left renal stones measuring up to 4 mm. The aorta is normal in caliber. There is no free fluid or adenopathy. Pelvis: The appendix is normal. There is mild bladder wall thickening which is likely inflammatory. There is no evidence of mass or adenopathy. There is no evidence of bowel obstruction. IMPRESSION: Stable left adrenal nodule. Small right renal cysts. Nonobstructing left nephrolithiasis. Bladder wall thickening, likely inflammatory. Reviewed, Interpreted and Dictated by Alexx Gallo III, MD Transcribed by Yany Newton Authenticated and . [facility]
== END ==
LOC: RAD 15:43
PROVIDERS: PCP Family Medicine; Visit Provider Physician Assistant
DX: R10.9 Unspecified abdominal pain (principal)
CPT/HCPCS: 74176

== ENCOUNTER → 2023-05-24 13:35 | Outpatient (CLI) | payer BC, SELFPAY ==
[2023-05-24 14:40] LABS: Basophils # 0.1 K/mm3 (0-0.2); Basophils % 0.7 % (0.1-2.0); Eosinophils # 0.2 K/mm3 (0.0-0.4); Eosinophils % 2.6 % (0.1-12.0); Hematocrit 58.3 % (42.0-52.0); Lymphocytes # 1.6 K/mm3 (0.7-4.5); Lymphocytes % 18.5 % (10-50); Mean Corpuscular HGB Conc 34.2 g/dL (31.8-35.4); Mean Corpuscular Hemoglobin 33.2 pg (27.0-31.2); Mean Corpuscular Volume 97.2 fl (80-94); Mean Platelet Volume 8.6 fl (7.4-10.4); Monocytes # 0.6 K/mm3 (0.1-1.0); Monocytes % 7.4 % (1.7-9.3); Neutrophils # 6.1 K/mm3 (1.8-7.8); Neutrophils % 70.8 % (37.0-80.0); Platelet Count 147 K/mm3 (142-424); Red Cell Distribution Width 13.5 % (11.5-17.5); White Blood Count 8.7 K/mm3 (4.8-10.8)
[2023-05-24 15:09] LABS: Hemoglobin 19.9 g/dL (14.1-18.0)
[2023-05-24 15:28] LABS: Alanine Aminotransferase 48 U/L (12-78); Albumin Level 4.1 g/dl (3.5-5.0); Albumin/Globulin Ratio 1.5 (1.1-1.8); Alkaline Phosphatase 59 U/L (38-126); Anion Gap 13.2 mEq/L (5-15); Aspartate Amino Transferase 49 U/L (17-59); Bilirubin,Total 1.6 mg/dl (0.2-1.3); Blood Urea Nitrogen 25 mg/dl (9-20); Calcium 9.3 mg/dl (8.4-10.2); Carbon Dioxide 30 mmol/L (22.0-30.0); Chloride 99 mmol/L (98-107); Estimated Glomerular Filt Rate 63 ml/min (>60); GFR (African American) 77 ML/MIN (>60); Globulin 2.7 g/dL (1.3-3.2); Glucose 110 mg/dl (74-100); Potassium 4.2 mmoL/L (3.5-5.1); Sodium 138 mmol/L (136-145); Total Protein,Serum 6.8 g/dl (6.3-8.2)
== END ==
PROVIDERS: PCP Family Medicine; Visit Provider Internal Medicine Medical Oncology
DX: D68.9 Coagulation defect, unspecified (principal)
CPT/HCPCS: 36415; 80053; 85025

== ENCOUNTER → 2023-06-26 11:13 | Outpatient (CLI) | payer BC, SELFPAY ==
[2023-06-26 11:49] LABS: Basophils # 0.1 K/mm3 (0-0.2); Basophils % 0.8 % (0.1-2.0); Eosinophils # 0.2 K/mm3 (0.0-0.4); Eosinophils % 2.9 % (0.1-12.0); Hematocrit 54.8 % (42.0-52.0); Lymphocytes # 1.8 K/mm3 (0.7-4.5); Lymphocytes % 21.9 % (10-50); Mean Corpuscular HGB Conc 34.6 g/dL (31.8-35.4); Mean Corpuscular Hemoglobin 32.5 pg (27.0-31.2); Mean Corpuscular Volume 93.8 fl (80-94); Monocytes # 0.6 K/mm3 (0.1-1.0); Monocytes % 6.5 % (1.7-9.3); Neutrophils # 5.7 K/mm3 (1.8-7.8); Neutrophils % 67.8 % (37.0-80.0); Platelet Count 175 K/mm3 (142-424); Red Blood Count 5.84 M/mm3 (4.60-6.20); Red Cell Distribution Width 12.6 % (11.5-17.5); White Blood Count 8.4 K/mm3 (4.8-10.8)
[2023-06-26 12:19] LABS: Hemoglobin 18.9 g/dL (14.1-18.0)
== END ==
PROVIDERS: PCP Family Medicine; Visit Provider Internal Medicine Medical Oncology
DX: D50.9 Iron deficiency anemia, unspecified (principal)
CPT/HCPCS: 36415; 85025

== ENCOUNTER 2023-09-27 13:45 | Outpatient (CLI) | payer BC, SELFPAY ==
[2023-09-27 15:19] LABS: Basophils # 0.1 K/mm3 (0-0.2); Eosinophils # 0.2 K/mm3 (0.0-0.4); Eosinophils % 2.5 % (0.1-12.0); Hematocrit 54.9 % (42.0-52.0); Hemoglobin 17.4 g/dL (14.1-18.0); Lymphocytes # 1.5 K/mm3 (0.7-4.5); Mean Corpuscular HGB Conc 31.8 g/dL (31.8-35.4); Mean Corpuscular Hemoglobin 30.2 pg (27.0-31.2); Mean Corpuscular Volume 95.1 fl (80-94); Mean Platelet Volume 8.2 fl (7.4-10.4); Monocytes # 0.5 K/mm3 (0.1-1.0); Monocytes % 6.3 % (1.7-9.3); Neutrophils # 5.8 K/mm3 (1.8-7.8); Neutrophils % 71.3 % (37.0-80.0); Platelet Count 187 K/mm3 (142-424); Red Blood Count 5.77 M/mm3 (4.60-6.20); Red Cell Distribution Width 13.7 % (11.5-17.5); White Blood Count 8.1 K/mm3 (4.8-10.8)
[2023-09-27 16:01] LABS: Alanine Aminotransferase 38 U/L (12-78); Albumin Level 4.1 g/dl (3.5-5.0); Albumin/Globulin Ratio 1.8 (1.1-1.8); Alkaline Phosphatase 91 U/L (38-126); Anion Gap 11.4 mEq/L (5-15); Aspartate Amino Transferase 39 U/L (17-59); Bilirubin,Total 1.2 mg/dl (0.2-1.3); Blood Urea Nitrogen 26 mg/dl (9-20); Calcium 9.4 mg/dl (8.4-10.2); Carbon Dioxide 28 mmol/L (22.0-30.0); Chloride 104 mmol/L (98-107); Estimated Glomerular Filt Rate 70 ml/min (>60); GFR (African American) 84 ML/MIN (>60); Globulin 2.3 g/dL (1.3-3.2); Glucose 148 mg/dl (74-100); Potassium 4.4 mmoL/L (3.5-5.1); Sodium 139 mmol/L (136-145); Total Protein,Serum 6.4 g/dl (6.3-8.2)
[2023-10-07 10:41] LABS: Miscellaneous Test SCANNED IMAGE
== END 2023-09-27 23:59 ==
LOC: LAB 13:46
PROVIDERS: PCP Family Medicine; Visit Provider Internal Medicine Medical Oncology
DX: D45 Polycythemia vera (principal)
CPT/HCPCS: 36415; 80053; 81270; 82668; 85025

== ENCOUNTER 2023-10-11 13:51 | Outpatient (CLI) | payer BC, SELFPAY ==
[2023-10-17 12:27] LABS: Miscellaneous Test SCANNED IMAGE
== END 2023-10-11 23:59 ==
LOC: LAB 13:51
PROVIDERS: PCP Family Medicine; Visit Provider Internal Medicine Medical Oncology
DX: D45 Polycythemia vera (principal)
CPT/HCPCS: 36415

== ENCOUNTER 2023-10-21 09:35 | Outpatient (CLI) | payer BC, SELFPAY ==
[2023-10-21 10:33] LABS: Blood Urea Nitrogen 26 mg/dl (9-20); Estimated Glomerular Filt Rate 70 ml/min (>60); GFR (African American) 84 ML/MIN (>60)
[2023-10-21 11:04] LABS: Prostate Specific Ag Screen 0.5 ng/ml (0.0-4.0)
[2023-10-21 11:07] LABS: Basophils # 0.1 K/mm3 (0-0.2); Basophils % 1.5 % (0.1-2.0); Eosinophils # 0.2 K/mm3 (0.0-0.4); Eosinophils % 3.3 % (0.1-12.0); Hematocrit 54.2 % (42.0-52.0); Hemoglobin 17.6 g/dL (14.1-18.0); Lymphocytes # 1.7 K/mm3 (0.7-4.5); Lymphocytes % 25.8 % (10-50); Mean Corpuscular HGB Conc 32.5 g/dL (31.8-35.4); Mean Corpuscular Hemoglobin 30.2 pg (27.0-31.2); Mean Corpuscular Volume 92.8 fl (80-94); Mean Platelet Volume 8.3 fl (7.4-10.4); Monocytes # 0.4 K/mm3 (0.1-1.0); Monocytes % 6.4 % (1.7-9.3); Neutrophils # 4.2 K/mm3 (1.8-7.8); Neutrophils % 62.9 % (37.0-80.0); Platelet Count 160 K/mm3 (142-424); Red Blood Count 5.84 M/mm3 (4.60-6.20); Red Cell Distribution Width 14.2 % (11.5-17.5); White Blood Count 6.6 K/mm3 (4.8-10.8)
[2023-10-22 08:58] LABS: Sex Hormone Binding Globulin 39.2 nmol/L (19.3-76.4)
== END 2023-10-21 23:59 ==
LOC: LAB 09:35
PROVIDERS: PCP Family Medicine; Visit Provider Urology
DX: E29.1 Testicular hypofunction (principal); N52.9 Male erectile dysfunction, unspecified; N40.0 Benign prostatic hyperplasia without lower urinary tract symptoms; D75.1 Secondary polycythemia
CPT/HCPCS: 36415; 82565; 84270; 84520; 85025; G0103

== ENCOUNTER 2023-11-04 10:58 | Outpatient (CLI) | payer BC, SELFPAY ==
[2023-11-04 11:48] LABS: Basophils # 0.1 K/mm3 (0-0.2); Basophils % 1.6 % (0.1-2.0); Eosinophils # 0.2 K/mm3 (0.0-0.4); Eosinophils % 3.5 % (0.1-12.0); Hematocrit 52.6 % (42.0-52.0); Hemoglobin 17.6 g/dL (14.1-18.0); Lymphocytes # 1.7 K/mm3 (0.7-4.5); Lymphocytes % 24.6 % (10-50); Mean Corpuscular HGB Conc 33.4 g/dL (31.8-35.4); Mean Corpuscular Hemoglobin 30.2 pg (27.0-31.2); Mean Corpuscular Volume 90.2 fl (80-94); Mean Platelet Volume 7.8 fl (7.4-10.4); Monocytes # 0.7 K/mm3 (0.1-1.0); Monocytes % 9.9 % (1.7-9.3); Neutrophils # 4.2 K/mm3 (1.8-7.8); Neutrophils % 60.3 % (37.0-80.0); Platelet Count 151 K/mm3 (142-424); Red Blood Count 5.83 M/mm3 (4.60-6.20); Red Cell Distribution Width 14.5 % (11.5-17.5); White Blood Count 6.9 K/mm3 (4.8-10.8)
[2023-11-05 12:12] LABS: Testosterone,Total 170 ng/dL (264-916)
[2023-11-08 02:01] LABS: Testosterone,Free 2.1 pg/mL (7.2-24.0)
== END 2023-11-04 23:59 | disposition home or self-care (01) ==
LOC: LAB 10:59
PROVIDERS: PCP Family Medicine; Visit Provider Urology
DX: N52.9 Male erectile dysfunction, unspecified (principal); E29.1 Testicular hypofunction
CPT/HCPCS: 36415; 84402; 84403; 85025

== ENCOUNTER 2023-11-13 12:10 | Outpatient (CLI) | payer BC, SELFPAY ==
--- NOTE | 2023-11-13 12:16 | XR_ITS ---
FINAL REPORT CLINICAL HISTORY: BRONCHITIS COMPARISON: 05/08/2021 FINDINGS: TWO-VIEW CHEST The heart size is normal. The mediastinum is normal. The lungs are underinflated but clear. There is no pneumothorax. IMPRESSION: No acute cardiopulmonary process. Reviewed, Interpreted and Dictated by Marco Antonio Angelo MD Transcribed by Jud Alvarez Authenticated and [facility]
== END 2023-11-13 23:59 | disposition home or self-care (01) ==
LOC: RAD 12:11
PROVIDERS: PCP Family Medicine; Visit Provider Physician Assistant
DX: J40 Bronchitis, not specified as acute or chronic (principal)
CPT/HCPCS: 71046

== ENCOUNTER 2023-11-18 09:16 | Emergency (ER) | payer BC, SELFPAY ==
[2023-11-18 09:20] VITALS: BP 128/75; PULSE 68; RESP 18; TEMP 36.6; O2SAT 100; BMI 39.9
--- NOTE | 2023-11-18 09:24 | EXP.UTC ---
Discharge Plan Disposition Patient Disposition: Home, Self-Care Condition: Good Prescriptions Prescriptions: New methylprednisolone 4 mg Tablets,Dose Pack 4 mg PO DIRECTED 6 Days Qty: 21 0RF Rx Instructions: Take 1 pack as directed for 6 days No Action lisinopril-hydrochlorothiazide 20-12.5 mg tablet 1 tab PO DAILY atorvastatin 40 mg tablet 40 mg PO DAILY testosterone cypionate [Depo-Testosterone] 100 mg/mL oil 100 mg IM WEEKLY tadalafil [Cialis] 5 mg tablet 5 mg PO DAILY Qty: 30 2RF clomiphene citrate [Clomid] 50 mg tablet 50 mg PO .COMPLEX 30 Days Qty: 30 0RF Rx Instructions: 50 mg orally on Saturday, Saturday, and Saturday albuterol sulfate 2.5 mg /3 mL (0.083 %) solution for nebulization See Rx Instructions .ROUTE .COMPLEX Rx Instructions: see rx Referrals Follow up/Referrals: Marily De La Rosa MD [Primary Care Provider] - See instructions Chan Parson DO [Staff Physician] - See instructions Activity Restrictions/Add. Instructions Additional Instructions/Restrictions: Rest the extremity, Wear the luciano wrap for compression, Elevate the extremity as tolerated while you are resting. Take the medication as directed. Follow up with Dr. Parson (orthopedics) if you continue to have symptoms. I put in a referral but you need to call his office and schedule an appointment. Follow up with your regular doctor. GO TO THE ER FOR ANY WORSENING SYMPTOMS Clinical Impressions Clinical Impression: Left knee pain Instructions Patient Instructions: DI for Knee Pain, Methylprednisolone, How to Apply an Elastic Wrap on Knee Discharge ED Provider: Bryan Camacho [facility] General Stated complaint: Pain in L knee Time Seen by Provider: 11/18/23 09:24 History of Present Illness Provider Complaint: He states that since yesterday he has had left knee pain and swelling. He denies any known injury. He states that he was walking down some stairs when the knee suddenly started feeling funny and hurting. Since then he has had left knee pain and swelling. His pain is worse when he bears weight and walks on the knee. He denies any history of knee pain. He denies any fever/chills/malaise. Related Data Home Medications Medication Instructions Recorded Confirmed atorvastatin 40 mg tablet 40 mg PO DAILY Cholesterol 10/15/17 11/18/23 lisinopril 20 1 tab PO DAILY Hypertension 10/15/17 11/18/23 mg-hydrochlorothiazide 12.5 mg tablet testosterone cypionate 100 mg/mL 100 mg IM WEEKLY 05/24/23 11/04/23 intramuscular oil (Depo-Testosterone) albuterol sulfate 2.5 mg/3 mL See Rx Instructions .Route .COMPLEX 11/18/23 11/18/23 (0.083 %) solution for nebulization Previous Rx's Medication Instructions Recorded tadalafil 5 mg tablet (Cialis) 5 mg PO DAILY #30 tabs 10/21/23 clomiphene citrate 50 mg tablet 50 mg PO .COMPLEX 30 days #30 tabs 11/09/23 (Clomid) methylprednisolone 4 mg tablets in 4 mg PO DIRECTED 6 days #21 tabs 11/18/23 a dose pack Allergies Allergy/AdvReac Type Severity Reaction Status Date / Time No Known Allergies Allergy Verified 11/18/23 09:37 [facility] Disclaimer: The information contained in this section may have been updated after the patient was seen, as this information can be updated by other users. Medical History COVID 05/11 Kidney stone Hypertension Surgical History H/O colonoscopy Hx of cholecystectomy History of ankle surgery right ankle 2014 H/O hand surgery right hand in 1993 and 1996 Family History Mother Factor V Leiden Hypertension Heart disease Stroke Social History Smoking Status: Never smoker alcohol intake: never current occupational status: employed Travel in the last 8 weeks: None ROS Obtained: Yes All systems reviewed & no additional complaints except as documented Constitutional Constitutional: Denies chills and Denies fever(s) Eyes Eyes: Denies eye discharge ENT Ears, Nose, Mouth, and Throat: Denies dizziness, Denies otalgia and Denies sore throat Cardiovascular Cardiovascular: Denies chest pain Respiratory Respiratory: Denies shortness of breath, Denies chest congestion, Denies cough, Denies stridor and Denies wheezing Gastrointestinal Gastrointestingal: Denies nausea or vomiting Musculoskeletal Musculoskeletal: Reports as per HPI Integumentary/Breasts Skin/Breast: Denies redness, Denies rash and Denies wounds Neurologic Neurologic: Denies dizziness, Denies paresthesias and Denies radicular pain Allergic/Immunologic Allergic/Immunologic: Denies wheezing Physical Exam General General appearance: alert and in no apparent distress Head Head exam: atraumatic, normocephalic and normal inspection Eye Eye exam: Present normal appearance, PERRL and EOMI ENT ENT exam: Present normal exam, normal oropharynx, mucous membranes moist, TM's normal bilaterally and normal external ear exam Neck Neck exam: Present normal inspection, full ROM and trachea midline; Absent meningismus or lymphadenopathy Chest Chest inspection: Present normal inspection and symmetric chest wall rise; Absent tenderness Respiratory Respiratory exam: Present normal lung sounds bilaterally; Absent respiratory distress Cardiovascular Cardiovascular exam: Present regular rate and normal rhythm; Absent JVD Abdominal Exam Abdominal exam: Present soft and normal bowel sounds; Absent distention, tenderness or guarding Extremities Exam Extremities exam: Present normal capillary refill; Absent calf tenderness Expanded Lower Extremity Exam Left: Hip/Pelvis exam: Present normal inspection and full ROM; Absent tenderness Upper leg exam: Present normal inspection and full ROM; Absent tenderness Knee exam: Present full ROM, tenderness and knee extension intact; Absent swelling, abrasion, laceration, ecchymosis, deformity, crepitus, dislocation, erythema, effusion, anterior drawer sign, posterior draw sign, pain with valgus, laxity with valgus, pain with varus or laxity with varus Lower leg exam: Present normal inspection, full ROM and Achilles tendon intact; Absent tenderness or Homans' sign Ankle exam: Present normal inspection and full ROM; Absent tenderness Foot/toe exam: Present normal inspection and full ROM; Absent tenderness Neurovascular/Tendon exam: Present normal capillary refill, normal 2-point discrimination and normal fine/light touch; Absent pulse deficit, motor deficit, sensory deficit, tendon deficit, extremity cold to touch or pallor Gait: observed and normal Back Exam Back exam: Present normal inspection; Absent tenderness Neurological Exam Neurological exam: Present alert and oriented X3 Psychiatric Psychiatric exam: Present normal affect and normal mood Skin Skin exam: Present warm, dry, intact and normal color Lymphatic Lymphatic Findings: no adenopathy Medical Decision Making Medical Records Medical records reviewed: No I reviewed the patient's medical records. Arsenio Inquiry Pt receiving controlled substance: No Radiology Data #1: Image(s): Knee Image Reviewed: Yes I reviewed the patient's radiology image and Yes I have reviewed radiologist's interpretation Preliminary Findings: No Fracture Seen Accession No. : [id number] Patient Name / ID : Ter Wild / [id number] Exam Date : 11/18/2023 09:30:26 ( Final ) Study Comment : Sex / Age : M / 53Y Creator : Attila Toribio MD Dictator : Junior Network Engineer : Dramatic Critic : Attila Toribio MD Approver2 : Report Date : 11/18/2023 11:03:29 My Comment : FINAL REPORT CLINICAL HISTORY: pain FINDINGS: LEFT KNEE 3 views of the left knee were obtained. There is no acute fracture or dislocation. There are degenerative changes with probable joint bodies posteriorly. No joint effusion is seen. Visualized joint spaces are normally aligned. Soft tissues are unremarkable. IMPRESSION: Degenerative changes with probable joint bodies. Reviewed, Interpreted and Dictated by Marily Toribio MD Transcribed by Carol Disla Authenticated and [facility] Procedures Risk/Benefits of Procedure(s) Were Explained: Yes Orthopedic Splinting/Casting Injury #1: Side: left Lower Extremity Injury Location: knee Lower Extremity Immobilizer: Luciano wrap and applied by nurse/dr rojas Post Cast/Splinting Neuro Status: intact and no change Post Cast/Splinting Vasc Status: intact and no change
--- NOTE | 2023-11-18 09:34 | XR_ITS ---
FINAL REPORT CLINICAL HISTORY: pain FINDINGS: LEFT KNEE 3 views of the left knee were obtained. There is no acute fracture or dislocation. There are degenerative changes with probable joint bodies posteriorly. No joint effusion is seen. Visualized joint spaces are normally aligned. Soft tissues are unremarkable. IMPRESSION: Degenerative changes with probable joint bodies. Reviewed, Interpreted and Dictated by Marily Toribio MD Transcribed by Carol Disla Authenticated and . [facility]
--- NOTE | 2023-11-18 09:44 | PC.NURSE ---
Pt back from RAD
[2023-11-18 10:30] VITALS: BP 128/75; PULSE 68; RESP 18; TEMP 36.6; O2SAT 100
== END 2023-11-18 10:30 | disposition home or self-care (01) ==
PROVIDERS: Emergency Provider Nurse Practitioner Family; PCP Family Medicine
DX: M25.562 Pain in left knee (principal)
CPT/HCPCS: 73562; 99212; 99214; G0463

== ENCOUNTER → 2024-01-03 13:17 | Outpatient (CLI) | payer BC, SELFPAY | LOC: SL 13:17 | PROVIDERS: PCP Family Medicine; Visit Provider Physician Assistant | DX: G47.33 Obstructive sleep apnea (adult) (pediatric) (principal); G47.36 Sleep related hypoventilation in conditions classified elsewhere; R06.83 Snoring | CPT/HCPCS: G0399 ==

== ENCOUNTER 2024-01-08 12:34 | Outpatient (CLI) | payer BC, SELFPAY | END 2024-01-08 23:59 | disposition home or self-care (01) | LOC: LAB 12:35 | PROVIDERS: PCP Family Medicine; Visit Provider Urology | DX: Z02.9 Encounter for administrative examinations, unspecified (principal) ==

== ENCOUNTER 2024-01-13 16:16 | Outpatient (CLI) | payer BC, SELFPAY | END 2024-01-13 23:59 | disposition home or self-care (01) | LOC: LAB.DROPOF 16:16 | PROVIDERS: PCP Urology; Visit Provider Urology | DX: N40.0 Benign prostatic hyperplasia without lower urinary tract symptoms (principal) | CPT/HCPCS: 87086 ==

== ENCOUNTER 2024-02-19 09:12 | Outpatient (CLI) | payer BC, SELFPAY ==
--- OUTSIDE RECORDS SUMMARY | 2024-02-19 09:15 | XMS_ITS ---
[facility] Address [address] [facility] [address] [place], [place] [address] Care Team Providers Care Bereavement Counselor Name Role Phone Saumya De La Rosa Primary Care Provider Adamaris Mahajan Unavailable [phone] ALLERGIES No Known Allergies REASON FOR VISIT not feeling good MEDICATIONS Medication SIG (Take, Route, Frequency, Duration) Notes Start Date End Date Status Naproxen 500 MG 1 tablet with food o r milk as needed Orally every 12 hrs for 30 day(s) 02/14/2024 Active AndroGel Pump 20.25 MG/ACT (1.62%) 1 pump to skin in the morning to shoulder, upper arms or abdomen Transdermal Once a day Active Atorvastatin Calcium 40 MG TAKE 1 TABLET BY MOUTH EVERY DAY for 90 Active Lisinopril-hydroCHLOROthiaz kristy 20-12.5 MG 1 tab(s) orally once a day for 90 days Active Medrol 4 MG as directed orally d aily for 6 days 02/14/2024 Active PROBLEMS Problem Type ICD Code Onset Dates Problem Status W/U Status Risk SNOMED Code Notes Problem Cervical disc herniation (M50.20) Active confirmed 362755961 Problem Obstructive sleep apnea (G47.33) Active confirmed 70637056 VITAL SIGNS Weight 288.8 lbs 02/14/2024 Blood pressure systolic 114 mm Hg 02/14/20 24 Blood pressure diastolic 72 mm Hg 024 Heart Rate 91 /min 02/14/2024 Height 69.25 in 02/14/2024 BMI 42.34 kg/m2 02/14/2024 Encounters Encounter Location Date [facility] [address] [place] [id number] 02/14/2024 Adamaris Mahajan Cervical disc hernia tion M50.20 ; Weight gain R63.5 ; Impaired fasting glucose R73.01 and Obstructive sleep apnea G47.33 ASSESSMENTS Encounter Date Diagnosis Assessment Notes Treatment Notes Treatment Clinical Notes 02/14/2024 Cervical disc herniation (ICD-10 - M50.20) Reviewed [facility] ortho notes. Can try steroids and naproxen. If no improvement, will likely need another injection. Will need to remain off work until the Feb. Can return on the if pain has improved. 02/14/2024 Weight gain (ICD-10 - R63.5) Will check labs to r/o diabetes as last glucose was elevated. He may be able to start on weight loss injections if his insurance covers them. 02/14/2024 Impaired fasting glucose (ICD-10 - R73.01) 02/14/2024 Obstructive sleep apnea (ICD-10 - G47.33) Has been prescribed a CPAP. PLAN OF TREATMENT Medication Medication Name Sig Start Date Stop Date Notes Naproxen 500 MG 1 tablet with food o r milk as needed Orally every 12 hrs for 30 day(s) 02/14/2024 Medrol 4 MG as directed orally daily for 6 days 02/14/2024 Treatment Notes Assessment Notes Cervical disc herniation Reviewed [facility] ortho notes. Can try steroids and naproxen. If no improvement, will likely need another injection. Will need to remain off work until the Feb. Can return on the if pain has improved. Weight gain Will check labs to r /o diabetes as last glucose was elevated. He may be able to start on weight loss injections if his insurance covers them. Obstructive sleep apnea Has been prescri bed a CPAP. Pending Test Test Name Order Date H-TSH 02/14/2024 H-CMP 02/14/2024 H-Glycohemoglobin A1C 02/14/2024 Next Appt Details Follow Up: via phone to repo rt test results, Reason: Progress Notes * Examination Category Sub-Category Detail Notes General Examination HEENT: unremarkable Heart: RSR Lungs: clear to auscultatio n Abdomen: bowel sounds present , soft and nontender, no organomegaly or masses, no guarding or rigidity Extremities: no leg edema General Appearance: NAD Skin: normal, no rash Neurologic Exam: Intact, gait normal Neck: supple, no lymphaden opathy, ttp along the lower C-spine, pain with any ROM of the neck Oral cavity: no lesions, mucosa m oist and WNL, no erythema Peripheral pulses: normal (2+) bilatera lly Chest: normal shape and exp ansion History and Physical Notes * HPI (History of Present Illness) Category Sub-Category Detail Notes Neck pain Pt presents toda y with c/o pain in his neck. Pt sts that he has a problem with a disc in his neck and he is having issues with this. He has seen someone at [facility] in the past and they did injections, which helped. He would like to try chiropractics and NSAIDs before getting another injection. Constitutional Weight gain Pt would like to discuss his rapid weight gain today as well
--- OUTSIDE RECORDS SUMMARY | 2024-02-19 09:15 | XMS_ITS | Clinical Summary ---
Author Organization [facility] Address [address] [place] [address] Phone Care Team Providers Care Process Safety Engineering Technologist Name Role Phone Teofilo De La Rosa Unavailable Unavailable Rony Moore MD Unavailable [phone] Reason for Visit and Chief Complaint Epidural Steroid Injection Problems Includes: Problems addressed during this encounter and other active Problems All Visits Onset Date Resolved Date Provider Condition S tatus Neck Pain 09/13/2020 Rony Moore MD Active Last Documented On 1 8:43AM ; [facility] Joint Pain, Localized in the Left Shoulder 08/23/2020 Rony Moore MD Active Last Documented On 1 1:53PM ; [facility] Plan of Treatment No Plan of Treatment Recorded Assessments Includes: Assessments from this encounter No Assessments Recorded Medical Equipment - Implanted Devices Includes: Current Devices No Medical Equipment Recorded Medications Includes: Medications discussed during this encounter and other current Medications Current Medications (continue as prescribed) Atorvastatin Calcium 40 MG Oral Tablet 12/11/2021 Pr ovider: Diagnosis: Last Documented On 2 9:50AM By Yenny Luo [facility] Lisinopril-hydroCHLOROthiazide 20-12.5 MG Oral Tablet 12/11/2021 Provider: Diagnosis: Last Documented On 2 9:50AM By Yenny Gill ; [facility] Medications Administered Includes: Administered Medications from this encounter No Administered Medications Recorded Results Includes: Results discussed during this encounter No Results Recorded For Specified Dates History of Present Illness Includes: History of Present Illness from this encounter No History of Present Illness Recorded Social History No Social History Recorded - Smoking Status Unknown Medical History Includes: Medical History addressed during this encounter No Medical History Recorded Family History Includes: Family History addressed during this encounter No Family History Recorded Review of Systems Includes: Review of Systems from this encounter No Review of Systems Recorded Mental Status Includes: Mental Status from this encounter No Mental Status Recorded Functional Status Includes: Functional Status from this encounter No Functional Status Recorded Physical Exam Includes: Physical Exam from this encounter No Physical Exam Recorded Allergies Includes: Active Allergies No Known Allergies Encounters Encounter Provider Location Date Check-In Time Check-Out Time Diagnosis Epidural Steroid Injection Víctor Parson MD [facility] 02/15/20 22 2:31PM 3:42PM Insurance Includes: Active Insurance Policies Plan Name Member ID Group # Subscriber Relationship Effect terese Dates 1 - [facility] [id number] 1 [id number] Geovani Toledo [facility] 07/22/2020 - Unknown Clinical Notes Includes: Clinical Notes from this encounter No Clinical Notes Recorded
--- OUTSIDE RECORDS SUMMARY | 2024-02-19 09:15 | XMS_ITS ---
Author Organization [facility] Address [address] [place] [address] Phone Care Team Providers Care Row Boss Hoeing Name Role Phone Teofilo De La Rosa Unavailable Unavailable Rony Moore MD Unavailable [phone] Reason for Referral Date Encounter Description Provider Reason for Referral 02/16/22 NEW PROBLEM/EST PT Gonsalo Slaughter MD R eferral To Physician 01/29/22 Follow Up Leon Paula PA-C Referral To Physician 10/11/20 Follow Up Rony Moore MD Referral To Physician - see pcp for bp 09/13/20 Follow Up Rony Moore MD Referral To Physician - see pcp for bp 08/23/20 Next Available Non-S pecified Physician Rony Moore MD Referral To Physician - see pcp for bp Problems Includes: Active, inactive, and resolved Problems All Visits Onset Date Resolved Date Provider Condition S tatus Neck Pain 09/13/2020 Rony Moore MD Active Last Documented On 1 8:43AM ; [facility] Joint Pain, Localized in the Left Shoulder 08/23/2020 Rony Moore MD Active Last Documented On 1 1:53PM ; [facility] Pain in the Right Foot in the Heel 05/23/2012 Unknown W austin Moore MD Resolved Last Documented On 1 1:53PM ; [facility] Plan of Treatment Findings Encounter Date Ordered weight loss diet Follow Up with Teofilo Cosby MD 05/23/2012 Last Documented On 3 11:48AM ; [facility] Pending Tests Order Diagnosis Results Due Ordering P rovider Radiology - MRI MRI Cervical Spine 09/06/20 W austin Moore MD Last Documented On 1 8:39PM ; [facility] Instructions to patient Lose weight Last Documented On 2 9:48AM ; [facility] No intervention and counseli ng on cessation of tobacco use Last Documented On 2 8:13AM ; [facility] Lose weight Last Documented On 2 8:13AM ; [facility] Lose weight Last Documented On 1 9:33AM ; [facility] Lose weight Last Documented On 1 8:57AM ; [facility] Lose weight Last Documented On 1 2:08PM ; [facility] Instructions for patient Fol low up with family physician for weight loss plan Last Documented On 2 9:15AM ; [facility] Lose weight Last Documented On 2 9:15AM ; [facility] Assessments Includes: Assessments for all patient encounters Findings Encounter Date No diagnosis of underweight Follow Up with Renard Paula PA-C 01/29/2022 Last Documented On 2 2:44PM ; [facility] Instructions Includes: Instructions for all patient encounters Instructions to patient Lose weight Last Documented On 2 9:48AM ; [facility] No intervention and counseli ng on cessation of tobacco use Last Documented On 2 8:13AM ; [facility] Lose weight Last Documented On 2 8:13AM ; [facility] Lose weight Last Documented On 1 9:33AM ; [facility] Lose weight Last Documented On 1 8:57AM ; [facility] Lose weight Last Documented On 1 2:08PM ; [facility] Instructions for patient Fol low up with family physician for weight loss plan Last Documented On 2 9:15AM ; [facility] Lose weight Last Documented On 2 9:15AM ; [facility] Medical Equipment - Implanted Devices Includes: Current and historical Devices No Medical Equipment Recorded Medications Includes: Current and historical Medications Current Medications (continue as prescribed) Atorvastatin Calcium 40 MG Oral Tablet 12/11/2021 Pr ovider: Diagnosis: Last Documented On 2 9:50AM By Yenny Gill ; [facility] Lisinopril-hydroCHLOROthiazide 20-12.5 MG Oral Tablet 12/11/2021 Provider: Diagnosis: Last Documented On 2 9:50AM By Yenny Gill ; [facility] Past Medications on file methylPREDNISolone 4 MG Oral Tablet Therapy Pack 02/02/2022 - 02/16/2022 Provider: Diagnosis: Last Documented On 2 9:48AM By Yenny Gill ; [facility] Caduet 10-10 MG OR TABS 05/23/2012 - 08/23/2020 Provid er: Diagnosis: Last Documented On 1 1:53PM By Maryellen Gilman ; [facility] Medications Administered Includes: Administered Medications in patient's chart No Administered Medications Recorded Results Includes: Results from 02/18/2023 through 02/19/2024 No Results Recorded For Specified Dates History of Present Illness History of Present Illness not supported for this document type No History of Present Illness Recorded Social History Description Last Updated No recent change in diet 01/29/2022 Last Documented On 2 2:44PM ; [facility] Not a current smoker. 01/29/2022 Last Documented On 2 2:44PM ; [facility] Not a smoker 01/29/2022 Last Documented On 2 2:44PM ; [facility] Exercising regularly 09/13/2020 Last Documented On 1 8:52PM ; [facility] No caffeine use 09/13/2020 Last Documented On 1 8:52PM ; [facility] No recent change in diet 09/13/2020 Last Documented On 1 8:52PM ; [facility] Non-smoker 09/13/2020 Last Documented On 1 8:52PM ; [facility] Not a current smoker. 09/13/2020 Last Documented On 1 8:52PM ; [facility] Not using alcohol 09/13/2020 Last Documented On 1 8:52PM ; [facility] Not using drugs 09/13/2020 Last Documented On 1 8:52PM ; [facility] No tobacco use 05/23/2012 Last Documented On 3 11:48AM ; [facility] Smoking status : Never smoked/ Recode: 4 05/23/2012 Last Documented On 3 11:48AM ; [facility] Procedures and Surgical History Surgical History Last Updated History of History of Gallbladder 2021 Last Documented On 2 2:44PM ; [facility] Medical History Includes: Medical History in patient's chart Description Last Updated Past medical history non-contributory Last Documented On 2 2:44PM ; [facility] History of Gallbladder 09/13/2020 Last Documented On 1 8:52PM ; [facility] Hypertension 09/13/2020 Last Documented On 1 8:52PM ; [facility] No recent immunization for flu 1 Last Documented On 1 8:52PM ; [facility] No recent immunization for pneumococcal pneumonia 09/13/2020 Last Documented On 1 8:52PM ; [facility] Family History Includes: Family History in patient's chart Description Last Updated No significant family history 01/29/2022 Last Documented On 2 2:44PM ; [facility] Family history of hypertension 1 Last Documented On 1 8:52PM ; [facility] Review of Systems Review of Systems not supported for this document type No Review of Systems Recorded Mental Status Description No anxiety Functional Status No Functional Status Recorded Physical Exam Physical Exam not supported for this document type No Physical Exam Recorded Immunizations Includes: Immunizations in patient's chart Vaccine Dose # Date Site Reaction(s) Status Source Influenza 1 08/23/2020 Complete (Refused - Patient objection) [facility] Last Documented On 1 4:17PM ; [facility] PCV (Pneumovax 23) 1 08/23/2020 Complete (Refused - Patient objection) [facility] Last Documented On 1 4:17PM ; [facility] Td 1 08/23/2020 Complete (Refused - Patient objection) [facility] Last Documented On 1 4:17PM ; [facility] Allergies Includes: Active, inactive, and resolved Allergies No Known Allergies Insurance Includes: Active Insurance Policies Plan Name Member ID Group # Subscriber Relationship Effect terese Dates 1 - [facility] [id number] 1 [id number] Geovani [place] [facility] 07/22/2020 - Unknown Clinical Notes Includes: Signed Clinical Notes starting from 07/05/2022 No Clinical Notes Recorded
--- OUTSIDE RECORDS SUMMARY | 2024-02-19 09:15 | XMS_ITS ---
Author Organization [facility] Address [address] [place] [id number] Care Team Providers Care Fork Assembler Name Role Phone Saumya De La Rosa Primary Care Provider [phone] REASON FOR VISIT Refill MEDICATIONS Medication SIG (Take, Route, Frequency, Duration) Notes Start Date End Date Status Albuterol Sulfate (2.5 MG/3ML) 0.083% 3 ml Inhalation every 6 hrs, prn 11/13/2023 Active Encounters Encounter Location Date Provider Diagnosis [facility] [address] [place] [id number] 11/29/2023 Saumya De La Rosa Bronchitis J40 ASSESSMENTS Encounter Date Diagnosis Assessment Notes Treatment Notes Treatment Clinical Notes 11/29/2023 Bronchitis (ICD-10 - J40) PLAN OF TREATMENT Medication Medication Name Sig Start Date Stop Date Notes Albuterol Sulfate (2.5 MG/3ML) 0.083% 3 ml Inhalation every 6 hrs, prn 11/13/2023
--- OUTSIDE RECORDS SUMMARY | 2024-02-19 09:15 | XMS_ITS | Clinical Summary ---
Author Organization [facility] Address [address] [place] [address] Phone Care Team Providers Care Channeler Insole Name Role Phone Teofilo De La Rosa Unavailable Unavailable Rony Moore MD Unavailable [phone] Reason for Visit and Chief Complaint Epidural Steroid Injection Problems Includes: Problems addressed during this encounter and other active Problems All Visits Onset Date Resolved Date Provider Condition S tatus Neck Pain 09/13/2020 Rony Moore MD Active Last Documented On 1 8:43AM ; [facility] Joint Pain, Localized in the Left Shoulder 08/23/2020 Rony Moore MD Active Last Documented On 1 1:53PM ; [facility] Plan of Treatment No Plan of [...] Documented On 2 9:50AM By Yenny Luo [facility] Lisinopril-hydroCHLOROthiazide 20-12.5 MG Oral Tablet 12/11/2021 Provider: Diagnosis: Last Documented On 2 9:50AM By Yenny Gill ; [facility] Medications Administered Includes: Administered Medications from [...] Diagnosis Epidural Steroid Injection Víctor Parson MD 02/14/2022 3:31PM 11:59PM Insurance Includes: Active Insurance Policies Plan Name Member ID Group # Subscriber Relationship Effect terese Dates 1 - [facility] [id number] 1 [id number] Geovani Jauregui 07/22/2020 - Unknown Clinical Notes Includes: Clinical Notes from this encounter No Clinical Notes Recorded
--- OUTSIDE RECORDS SUMMARY | 2024-02-19 09:15 | XMS_ITS ---
Care Plan - [facility], [facility] Created on: February 19, 2024 Geovani Toledo : 1970 Sex: Male Author Organization [facility] Address [address] [place] [address] Phone Care Team Providers Care Polymerization Oven Operator Name Role Phone Teofilo De La Rosa Unavailable Unavailable Rony Moore MD Unavailable [phone]
--- OUTSIDE RECORDS SUMMARY | 2024-02-19 09:15 | XMS_ITS ---
[facility] Address [address] [place] [id number] Care Team Providers Care Executive Relations Specialist Name Role Phone Saumya De La Rosa Primary Care Provider Adamaris Mahajan [phone] REASON FOR REFERRAL Reason patient needs CPAP Diagnosis 1 Snoring (R06.83) Diagnosis 2 Daytime somnolence ( R40.0) [facility] Referring Provider First Name Adamaris Referring Provider Last Name Keyshawn Referring Provider Speciality Physician Account Services Specialist General Notes Peyton Craig 01/15/20 24 11:25:44 AM > sent referral Referral Priority Routine REASON FOR VISIT Test results Encounters Encounter Location Date Provider Diagnosis [facility] [address] [place] [phone] 01/15/2024 Adamaris Mahajan Snoring R06.83 ASSESSMENTS Encounter Date Diagnosis Assessment Notes Treatment Notes Treatment Clinical Notes 01/15/2024 Snoring (ICD-10 - R06.83) PLAN OF TREATMENT Referrals Referral Date Details patient needs CPAP Consultation Request Notes Referral Date Referring Provider Referred Provider Not es 01/15/2024 Adamaris Mahajan , patient needs CPAP
--- OUTSIDE RECORDS SUMMARY | 2024-02-19 09:15 | XMS_ITS | Patient Health Record ---
Author Organization [facility] Address [address] [id number] Care Team Providers Care Waiver Analyst Name Role Phone Saumya De La Rosa Primary Care Provider [phone] Adamaris Mahajan Unavailable [phone] ALLERGIES No Known Allergies RESULTS Component Value Reference Range Notes CBC Venipuncture (in house) Reviewed date:09/19/2023 04:28:46 PM Interpretation: Performing Lab: Notes/Report: wbc 8.1 3.5 - 10 lymph 25.0 15 - 50 mid 6.1 2 - 15 gran 68.9 35 - 80 rbc 6.06 3.5 - 5.5 hgb 18.0 11.5 - 16.5 hct 54.1 35 - 55 mcv 89.2 75 - 100 mch 29.7 25 - 35 mchc 33.3 31 - 38 platlet 195 100 - 400 P-Comprehensive Metabolic Pa carlos (CMP) Reviewed date:09/20/2023 09:48:28 AM Interpretation:Glu 109, Creat 1.38 Performing Lab: Notes/Report: Test performed by [facility], [employer] [facility] , [address], [place] [address] Negrito Boston MD, [employer] CLIA: [id number] Sodium 141 135-145 mEq/L Potassium 4.4 3.5-5.3 mEq/L Chloride 103 97-108 mEq/L CO2 26 22-32 mEq/L Glucose 109 65-99 mg/dL BUN 20 6-20 mg/dL Creatinine 1.38 0.70-1.30 mg/dL Calcium 9.6 8.6-10.4 mg/dL eGFR by Creatinine 61 >59 mL/min/1.73m2 Protein 6.9 6.0-8.3 g/dL Albumin 4.4 3.5-5.3 g/dL Alkaline Phosphatase 117 40-129 IU/L ALT (SGPT) 30 <5-55 IU/L AST (SGOT) 27 <5-46 IU/L Bilirubin, Total 1.1 <0.2-1.2 mg/dL A/G Ratio 1.8 1.1-2.5 mg/dL P-Testosterone Total (Adult Male) Reviewed date:09/20/2023 09:48:28 AM Interpretation:Test. Total 80.30 Performing Lab: Notes/Report: Test performed by [facility] [address] [place] [address] , [place] [address] Negrito Boston MD, [employer] CLIA: [id number] Testosterone Total 80.30 264.00-916.00 ng/dL P-Ferritin Reviewed date:09/20/2023 09:48:29 AM Interpretation:Normal Performing Lab: Notes/Report: Test performed by [facility] [address] [place] [address] , [address], [place] [address] Negrito Boston MD, [employer] CLIA: [id number] Ferritin 39.6 30.0-400.0 ng/mL P-Lipid Panel Reviewed date:09/20/2023 09:48:29 AM Interpretation:Hdl 35 Performing Lab: Notes/Report: Test performed by [facility] [address] [place] [address] , [facility] [place] [address] Negrito Boston MD, [employer] CLIA: [id number] Cholesterol 152 <200 mg/dL Triglycerides 100 <150 mg/dL HDL Cholesterol 35 >39 mg/dL Cholesterol / HDL Ratio 4.34 0.00-4.99 Ratio Non-HDL Cholesterol 117 <130 mg/dL LDL Cholesterol (Calculation) 97 <130 mg/dL LDL Cholesterol Levels* Less than 100 mg/dL Optimal 100 to 129 mg/dL Near Optimal/ Above Optimal 130 to 159 mg/dL Borderline High 160 to 189 mg/dL High 190 mg/dL and above Very High * Categories as recommended by the 2004 ATPIII guidelines LDL/HDL Ratio 2.8 <3.3 Ratio LDL Cholesterol Patient History Test Date: 09/19/2023 LDL Results: 97 Units: mg/dL % Change: - P-PSA Reviewed date:09/20/2023 09:48:29 AM Interpretation:Normal Performing Lab: Notes/Report: Test performed by [facility] [address] [place], [place] [address] [address] Negrito Boston MD, [employer] CLIA: [id number] PSA 0.70 <4.00 ng/mL Please note this is an ultrasensitive PSA assay with a lower limit of detection of 0.014 ng/mL. This test is performed by the [employer] ECLIA methodology. Values obtained with different assay methods or kits cannot be directly compared. P-TSH reflex to FT4 Reviewed date:09/20/2023 09:48:29 AM Interpretation:Normal Performing Lab: Notes/Report: Test performed by [facility] [address] [place], [place] [address] [address] Negrito Boston MD, [employer] CLIA: [id number] TSH reflex to FT4 2.20 0.43-5.25 mU/L Influenza Screen (in house) Reviewed date:11/08/2023 08:46:54 AM Interpretation: Performing Lab: Notes/Report: results Neg CBC Fingerstick (in house) Reviewed date:11/08/2023 08:47:37 AM Interpretation: Performing Lab: Notes/Report: wbc 9.9 3.5 - 10 lym 23.2 15 - 50 mid 6.0 2 - 15 gran 70.8 35 - 80 rbc 6.11 3.5 - 5.5 hgb 18.0 11.5 - 16.5 hct 55.8 35 - 55 mcv 91.3 75 - 100 mch 29.4 25 - 35 mchc 32.2 31 - 38 plat 143 100 - 400 Covid test (in house) Reviewed date:11/08/2023 08:47:46 AM Interpretation: Performing Lab: Notes/Report: Result: Neg Urinalysis - Inhouse Reviewed date:04/18/2023 03:27:17 PM Interpretation: Performing Lab: Notes/Report: Color/Clarity yellow/clear Leuk Neg Nitrite Neg Urobili 3.2 Protein Neg pH 6.5 Blood Neg Sp. Gr. 1.020 Ketone Neg Bili Neg Gluc Neg bacteria WBC RBC CBC Fingerstick (in house) Reviewed date:04/18/2023 03:27:10 PM Interpretation: Performing Lab: Notes/Report: wbc 7.6 3.5 - 10 lym 24.1% 15 - 50 mid 6.2% 2 - 15 gran 69.7% 35 - 80 rbc 6.50 3.5 - 5.5 hgb 20.2 11.5 - 16.5 hct 62.5 35 - 55 mcv 31.2 75 - 100 mch 32.4 25 - 35 mchc 148 31 - 38 plat CXR Reviewed date:11/14/2023 03:09:31 PM Interpretation:No acute cardiopulmonary process Performing Lab: Notes/Report: No acute cardiopulmonary process CBC Fingerstick (in house) Reviewed date:04/12/2023 08:32:07 AM Interpretation: Performing Lab: Notes/Report: wbc 10.2 3.5 - 10 lym 23.8 15 - 50 mid 6.2 2 - 15 gran 70.0 35 - 80 rbc 6.66 3.5 - 5.5 hgb 20.8 11.5 - 16.5 hct 64.0 35 - 55 mcv 96.1 75 - 100 mch 31.2 25 - 35 mchc 32.5 31 - 38 plat 104 100 - 400 Urinalysis - Inhouse Reviewed date:04/12/2023 08:31:59 AM Interpretation: Performing Lab: Notes/Report: Color/Clarity yellow/clear Leuk neg Nitrite neg Urobili 16 Protein neg pH 6.5 Blood neg Sp. Gr. 1.020 Ketone neg Bili neg Gluc neg bacteria WBC RBC sleep study Reviewed date:01/15/2024 08:33:36 AM Interpretation:mild SHWETA, nocturnal hypoxemia Performing Lab: Notes/Report: mild SHWETA, nocturnal hypoxemia REASON FOR REFERRAL Diagnosis 1 Polycythemia (D75.1) [facility] Referring Provider First Name Adamaris Referring Provider Last Name Keyshawn Referring Provider Speciality Physician Technology Sales Specialist Referred Provider Hematology-Oncology, . Referred Provider Specialty Hematology/O ncology General Notes Adamaris Mahajan 04/18 2:49:01 PM > Pt needs an appt with Kate Martinez Shelia 04/19/2023 10:43:53 AM > Dr Neena leal at 2:00 records faxed--left message for ptKate Shelia 04/19/2023 11:36:29 AM > pt informed Referral Priority Routine Diagnosis 1 Low testosterone (R7 9.89) [facility] Referring Provider First Name Adamaris Referring Provider Last Name Keyshawn Referring Provider Speciality Physician Technology Sales Specialist Referred Provider Urology, . Referred Provider Specialty Urology General Notes Adamaris Mahajan 11:38:18 AM > Pt would like to see urology at [facility] for both the low testosterone and the recurrent epididymitis. He also has a hx of kidney stones. , Sushma Murcia 09/19/2023 4:24:42 PM > no answer at Dr. Muñoz's office, Sushma Murcia 09/23/2023 1:51:59 PM > no answer at Dr. Muñoz's office, Sushma Murcia 09/24/2023 9:27:35 AM > October 27 @ 130pm Referral Priority Routine Reason patient needs CPAP Diagnosis 1 Snoring (R06.83) Diagnosis 2 Daytime somnolence ( R40.0) [facility] Referring Provider First Name Adamaris Referring Provider Last Name Keyshawn Referring Provider Speciality Physician Technology Sales Specialist General Notes Peyton Craig 01/15/20 11:25:44 AM > sent referral Referral Priority Routine MEDICATIONS Medication SIG (Take, Route, Frequency, Duration) Notes Start Date End Date Status AndroGel Pump 20.25 MG/ACT (1.62%) 1 pump [...] d aily for 6 days 02/14/2024 Active Naproxen 500 MG 1 tablet with food o r milk as needed Orally every 12 hrs for 30 day(s) 02/14/2024 Active SOCIAL HISTORY Sex Assigned At : Social History Observation Description Sex Assigned At Unknown PROBLEMS Problem Type ICD Code Onset Dates Problem Status W/U Status Risk SNOMED Code Notes Problem Essential (primary) hypertension (I10) Active confirmed Essential hypertension (47905454) Problem Essential hypertension (I10) Active confirmed 12296800 Problem Cervical disc herniation (M50.20) Active confirmed 500304731 Problem Obstructive sleep apnea (G47.33) Active confirmed 32149300 Problem Gastroesophageal reflux disease, esophagitis presence not specified (K21.9) Active confirmed 092461143 Problem Kidney stones (N20.0) Active confirmed 09905613 Problem Protrusion of cervical intervertebral disc (M50.20) Active confirmed 064409164 Problem Pure hypercholesterolemia (E78.00) Active confirmed Pure hypercholesterolemia (594674762) Problem Combined hyperlipidemia (E78.2) Active confirmed 754725011 Problem Daytime somnolence (R40.0) Active confirmed 321987625116 VITAL SIGNS Heart Rate 91 /min 02/14/2024 Blood pressure diastolic 72 mm Hg 02/14/2024 Height 69.25 in 02/14/2024 Blood pressure systolic 114 mm Hg 02/14/2024 Weight 288.8 lbs 02/14/2024 BMI 42.34 kg/m2 02/14/2024 Encounters Encounter Location Date Provider Diagnosis [facility] [address] [facility] [address] [facility] [address] [place] [id number] 04/11/2023 Adamaris Crowdy Left flank pain R10. 9 and Epididymitis N45.1 [facility] [address] [place], [place] [id number] 04/18/2023 Adamaris Crowdy Left flank pain R10. 9 ; Epididymitis N45.1 and Polycythemia D75.1 [facility] [address] [place], [place] [id number] 04/18/2023 Adamaris Crowdy [facility] [address] [place], [place] [id number] 05/06/2023 Adamaris Crowdy [facility] [address] [place], [place] [id number] 09/19/2023 Adamaris Crowdy Fatigue, unspecified type R53.83 ; Low testosterone R79.89 ; Polycythemia D75.1 ; Pure hypercholesterolemia E78.00 ; Essential (primary) hypertension I10 and Screening PSA (prostate specific antigen) Z12.5 [facility] [address] [facility] [address] [place], [place] [id number] 09/20/2023 Adamaris Crowdy [facility] [address] [facility] [address] [place], [place] [id number] 11/07/2023 Adamaris Crowdy Acute URI J06.9 and Bronchitis J40 [facility] [address] [facility] [address] [place], [place] [id number] 11/13/2023 Adamaris Crowdy Bronchitis J40 [facility] [address] [facility] [address] [place], [place] [id number] 11/28/2023 Adamaris Crowdy Snoring R06.83 ; Ess ential hypertension I10 and Daytime somnolence R40.0 [facility] [address] [facility] [address] [place], [place] [id number] 11/29/2023 J Teofilo Rj Bronchitis J40 [facility] [address] [place], [place] [id number] 01/15/2024 Adamaris Crowdy Snoring R06.83 [facility] [address] [facility] [address] [place], [place] [id number] 02/14/2024 Adamaris Crowdy Cervical disc hernia tion M50.20 ; Weight gain R63.5 ; Impaired fasting glucose R73.01 and Obstructive sleep apnea G47.33 ASSESSMENTS Encounter Date Diagnosis Assessment Notes Treatment Notes Treatment Clinical Notes 04/11/2023 Epididymitis (ICD-10 - N45.1) Patient is having the same symptoms he had when he had epididymitis the last time. He cannot get into urology until May 01. Will go ahead and start on abx and more nabumetone. 04/11/2023 Left flank pain (ICD -10 - R10.9) 04/18/2023 Epididymitis (ICD-10 - N45.1) Symptoms have resolved with abx and NSAIDS. He has an appt with urology on May 01. Will send notes of the recurrent epididymitis and he will discuss this with the urologist along with his kidney stones. 04/18/2023 Left flank pain (ICD -10 - R10.9) Resolved. 09/19/2023 Fatigue, unspecified type (ICD-10 - R53.83) 09/19/2023 Low testosterone (IC D-10 - R79.89) 11/07/2023 Bronchitis (ICD-10 - J40) 11/07/2023 Acute URI (ICD-10 - J06.9) 01/15/2024 Snoring (ICD-10 - R06.83) 02/14/2024 Weight gain (ICD-10 - R63.5) Will check labs to r/o diabetes as last glucose was elevated. He may be able to start on weight loss injections if his insurance covers them. 02/14/2024 Cervical disc hernia tion (ICD-10 - M50.20) [facility] Can try steroids and naproxen. If no improvement, will likely need another injection. Will need to remain off work until the Feb. Can return on the if pain has improved. 11/29/2023 Bronchitis (ICD-10 - J40) 11/28/2023 Essential hypertensi on (ICD-10 - I10) 11/28/2023 Snoring (ICD-10 - R06.83) 11/13/2023 Bronchitis (ICD-10 - J40) He is better but still wheezing. Patient did well with a neb in the office. He is going to buy a nebulizer machine. Will send the vials to the pharmacy. Will give a sample of trelegy as well to use for the next 2 weeks and get a CXR. 02/14/2024 Impaired fasting glu cose (ICD-10 - R73.01) 11/28/2023 Daytime somnolence (ICD-10 - R40.0) 09/19/2023 Polycythemia (ICD-10 - D75.1) Will get labs and discuss with Dr. Chaudhary. 04/18/2023 Polycythemia (ICD-10 - D75.1) 09/19/2023 Pure hypercholestero lemia (ICD-10 - E78.00) 02/14/2024 Obstructive sleep ap carolyn (ICD-10 - G47.33) Has been prescribed a CPAP. 09/19/2023 Essential (primary) hypertension (ICD-10 - I10) 09/19/2023 Screening PSA (prost ate specific antigen) (ICD-10 - Z12.5) PLAN OF TREATMENT Pending Test Test Name Order Date H-TSH 06/23/2021 H-TSH 02/14/2024 H-CBC 06/23/2021 H-Lipid Panel 06/23/2021 H-CMP 06/23/2021 H-CMP 02/14/2024 H-Glycohemoglobin A1C 02/14/2024 H-PSA 06/23/2021 H-Testosterone, total 06/23/2021 Insurance Providers Payer Name Payer Address Payer Phone Subscriber Number Group Number Insured Name Patient Relationship to Insured Coverage Start Date Coverage End Date [facility] [address] [place] [address] [id number] AMBIKA JOSUE Self - patient is the insured MEDICAL (GENERAL) HISTORY Medical History History ICD Code Hypertension kidney stones Covid 05/11 Surgical History Surgery Date(Month/Year) Right hand surgery 1993 Right hand surgery 1996 Right ankle surgery 2014 Lithoscopy on Right Side - 2016 Lithoscopy on Left Side - Dr. Nation 07/23 017 cholecystectomy 07/2019 colonoscopy- [facility] 06/2019 Hospitalization History Reason Date(Month/Year) [facility] [place] Parot[place] 12/06/18
--- OUTSIDE RECORDS SUMMARY | 2024-02-19 09:15 | XMS_ITS | Clinical Summary ---
Author Organization [facility] , [facility] Address [address] [place] [address] Phone Care Team Providers Care Stone Unloader Name Role Phone Teofilo De La Rosa Unavailable Unavailable Rony Moore MD Unavailable [phone] Reason for Referral Date Encounter Description Provider Reason for Referral 02/16/22 NEW PROBLEM/EST PT Gonsalo Slaughter MD R eferral To Physician Reason for Visit and Chief Complaint The Chief Complaint is: cervical pain Problems Includes: Problems addressed during this encounter and other active Problems All Visits Onset Date Resolved Date Provider Condition S tatus Neck Pain 09/13/2020 Rony Moore MD Active Last Documented On 1 8:43AM ; [facility], [facility] Joint Pain, Localized in the Left Shoulder 08/23/2020 Rony Moore MD Active Last Documented On 1 1:53PM ; [facility], [facility] Plan of Treatment I discussed with the patient I do not see a fracture on x-ray and I do not feel he has torn ligaments given that the thumb is stable. I do believe he has nerve irritation of the ulnar digital nerve given the burning sensation he feels. He feels the thumb has improved with time and he states he does not need work restrictions. We discussed over time this should improve. We will see him back in 1 month if he has not improved. Patient is agreeable. - Last Documented On 02/16/2022 10:14AM ; [facility] Instructions to patient Lose weight Last Documented On 2 9:48AM ; [facility], [facility] Assessments Includes: Assessments from this encounter Findings Ulnar digital nerve irritation right thumb - Last Documented On 02/16/2022 10:14AM ; [facility], [facility] Instructions Includes: Instructions from this encounter Instructions to patient Lose weight Last Documented On 9:48AM ; [facility] Medical Equipment - Implanted Devices Includes: Current Devices No Medical Equipment Recorded Medications Includes: Medications discussed during this encounter and other current Medications Discontinued / Stopped on this date on 02/02/2022 methylPREDNISolone 4 MG Oral Tablet Therapy Pack Provider: Diagnosis: Last Documented On 9:48AM By Yenny Gill ; [facility] Current Medications (continue as prescribed) Atorvastatin Calcium 40 MG Oral Tablet 12/11/2021 Pr ovider: Diagnosis: Last Documented On 9:50AM By Yenny Gill ; [facility], [facility] Lisinopril-hydroCHLOROthiazide 20-12.5 MG Oral Tablet 12/11/2021 Provider: Diagnosis: Last Documented On 9:50AM By Yenny Gill ; [facility] Medications Administered Includes: Administered Medications from this encounter No Administered Medications Recorded Vital Signs Includes: Vital Signs from this encounter Vital Name 02/16/2022 09:50A Blood Pressure Sitting (mmHg) 155/101 Pulse Rate-Sitting (bpm) 84 Height (in) 69 Weight (lb) 260 Body Mass Index (kg/m2) 38.4 Body Surface Area (m2) 2.3 Note: rj Last Documented: On 02/16/2022 9:50AM ; [facility], [facility] Results Includes: Results discussed during this encounter No Results Recorded For Specified Dates History of Present Illness Includes: History of Present Illness from this encounter DIANDRA Toledo is a 51 year old male. - Allergy list reviewed - Problem list reviewed - Medication list reviewed - Pain is constant (100% of the time) - Pain is dull, aching - Patient pain level from 1-10: 2 - Yes, previous treatment. Patient is a 51-year-old male that is here today with complaints of pain in his right thumb. He points specifically to the IP joint. He states approximately 1 year ago he was picking up a barbell and felt a pop and pain in the right thumb. The pain eventually decreased. 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 The pain did not eventually go away so he was seen in urgent treatment center. He was given a brace and they obtained x-rays. He was also given a Medrol Dosepak by his PCP which seemed to help his pain. He still feels burning in the right thumb. He has been working light duty at his job recently. Social History Description Last Updated No recent change in diet 01/29/2022 Last Documented On 2 9:47AM ; [facility] Not a current smoker. 01/29/2022 Last Documented On 2 9:47AM ; [facility] Not a smoker 01/29/2022 Last Documented On 2 9:47AM ; [facility] Exercising regularly 09/13/2020 Last Documented On 2 9:47AM ; [facility] No caffeine use 09/13/2020 Last Documented On 2 9:47AM ; [facility] No recent change in diet 09/13/2020 Last Documented On 2 9:47AM ; [facility] Non-smoker 09/13/2020 Last Documented On 2 9:47AM ; [facility] Not a current smoker. 09/13/2020 Last Documented On 2 9:47AM ; [email or web address] Not using alcohol 09/13/2020 Last Documented On 2 9:47AM ; [facility] Not using drugs 09/13/2020 Last Documented On 2 9:47AM ; [facility] No tobacco use 05/23/2012 Last Documented On 2 9:47AM ; [facility] Smoking status : Never smoked/ Recode: 4 05/23/2012 Last Documented On 2 9:47AM ; [facility], [facility] Procedures and Surgical History Includes: Procedures from this encounter Procedures Code Diagnosis Performing Provider Service L ocation Service Date use of tobacco assessment performed 1000F Last Documented On 2 9:48AM ; [facility], [facility] patient not screened for future fall risk 3288F Last Documented On 2 9:48AM ; [facility] follow-up visit in one month with PCP fo r elevated BP Last Documented On 2 9:51AM ; [facility] referral to physician Last Documented On 2 9:51AM ; [facility] Surgical History Last Updated History of History of Gallbladder 2021 Last Documented On 2 9:47AM ; [facility] Medical History Includes: Medical History addressed during this encounter Description Last Updated Past medical history non-contributory Last Documented On 2 9:47AM ; [email or web address] History of Gallbladder 09/13/2020 Last Documented On 2 9:47AM ; [facility] Hypertension 09/13/2020 Last Documented On 2 9:47AM ; [facility] No recent immunization for flu Last Documented On 2 9:47AM ; [facility] No recent immunization for pneumococcal pneumonia 09/13/2020 Last Documented On 2 9:47AM ; [facility] Family History Includes: Family History addressed during this encounter Description Last Updated No significant family history 01/29/2022 Last Documented On 2 9:47AM ; [facility] Family history of hypertension 1 Last Documented On 2 9:47AM ; [facility] Review of Systems Includes: Review of Systems from this encounter Systemic: Not feeling tired, no recent weight loss, and no recent weight gain. Head: No headache and no sinus pain. Eyes: No vision problems, no Cataracts, no Glasses/Contacts, and no Glaucoma. Otolaryngeal: No hearing loss and no tinnitus. Cardiovascular: No chest pain or discomfort, no palpitations, no Hypertension, and no High Cholesterol. Pulmonary: No daytime asthma symptoms and no chronic cough. No wheezing. Gastrointestinal: No heartburn and no abdominal pain. No Indigestion, no Acid Reflux, no Peptic Ulcer, no GI Stomach Bleed, and no Ulcers. Endocrine: No hot flashes, no muscle weakness, no Diabetes, no Hypothyroid, and no Hyperthyroid. Hematologic: No easy bleeding, no tendency for easy bruising, and no Anemia. Musculoskeletal: No Arthritis and no lower back pain. No soft tissue swelling and no localized joint pain. Neurological: No dizziness, no convulsions, and no numbness. Psychological: No anxiety, no emotional lability, no depression, and no insomnia. Not crying for no reason. Skin: No dry skin. No Ulcers, no Scars, and no rash. Allergic and Immunologic: No complaint of seasonal allergic reaction. reviewed 02/16/22 The patient is awake alert oriented in time place and person. Has normal mood and affect. Is neatly dressed. Has normal gait and station. Pupils are equal and react to light normally. Eyes move normally. Mucous membranes are moist. The patient has no trouble with speech. Normal circulation. Normal sensation. No thenar or intrinsic atrophy. Normal strength. I do not feel a mass. There is some swelling over the right thumb IP joint. Patient is not tender over the A1 mohit of the right thumb. No catching or triggering of the right thumb. No instability of the right thumb MP joint or IP joint. No lacerations or abrasions. Mental Status Includes: Mental Status from this encounter Description No anxiety Functional Status Includes: Functional Status from this encounter No Functional Status Recorded Physical Exam Includes: Physical Exam from this encounter Allergies Includes: Active Allergies No Known Allergies Encounters Encounter Provider Location Date Check-In Time Check-Out Time Diagnosis NEW PROBLEM/EST PT Gonsalo Slaughter MD [facility] 02/17/20 22 9:38AM 10:00AM Insurance Includes: Active Insurance Policies Plan Name Member ID Group # Subscriber Relationship Effect terese Dates 1 - [facility] [id number] 1 [id number] Geovani Jauregui 07/22/2020 - Unknown Clinical Notes Includes: Clinical Notes from this encounter No Clinical Notes Recorded
--- OUTSIDE RECORDS SUMMARY | 2024-02-19 09:16 | XMS_ITS | Clinical Summary ---
Author Organization [facility] , [facility] Address [address] [place] [address] Phone Care Team Providers Care Cement Rubber Name Role Phone Teofilo De La Rosa Unavailable Unavailable Rony Moore MD Unavailable [phone] Reason for Referral Date Encounter Description Provider Reason for Referral 01/29/22 Follow Up Leon Paula PA-C Referral To Physician Reason for Visit and Chief Complaint The Chief Complaint is: cervical pain Problems Includes: Problems addressed during this encounter and other active Problems All Visits Onset Date Resolved Date Provider Condition S tatus Neck Pain 09/13/2020 Rony Moore MD Active Last Documented On 1 8:43AM ; [facility] Joint Pain, Localized in the Left Shoulder 08/23/2020 Rony Moore MD Active Last Documented On 1 1:53PM ; [facility], [facility] Plan of Treatment Patient was seen by myself Leon Paula PA-C. Patient will follow up 4 weeks after we try another epidural injection at C5-C6 we can place him in maintenance epidural injection to take as needed every 3 to 4 months also. If the injections do not help we may need to consider repeating the MRI - Last Documented On 01/29/2022 2:44PM ; [facility], [facility] Instructions to patient No intervention and counseli ng on cessation of tobacco use Last Documented On 2 8:13AM ; [facility], [facility] Lose weight Last Documented On 2 8:13AM ; [facility], [facility] Assessments Includes: Assessments from this encounter Findings - No diagnosis of underweight - Last Documented On 01/29/2022 2:44PM ; [facility] C5-C6 disc herniation - Last Documented On 01/29/2022 2:44PM ; [facility] Instructions Includes: Instructions from this encounter Instructions to patient No intervention and counseli hao on cessation of tobacco use Last Documented On 2 8:13AM ; [facility] Lose weight Last Documented On 2 8:13AM ; [facility] Medical Equipment - Implanted Devices Includes: Current Devices No Medical Equipment Recorded Medications Includes: Medications discussed during this encounter and other current Medications Current Medications (continue as prescribed) Atorvastatin Calcium 40 MG Oral Tablet 12/11/2021 Pr ovider: Diagnosis: Last Documented On 9:50AM By Yenny Gill ; [facility] Lisinopril-hydroCHLOROthiazide 20-12.5 MG Oral Tablet 12/11/2021 Provider: Diagnosis: Last Documented On 2 9:50AM By Yenny Gill ; [facility] Medications Administered Includes: Administered Medications from this encounter No Administered Medications Recorded Vital Signs Includes: Vital Signs from this encounter Vital Name 01/29/2022 08:21A Height (in) 69 Weight (lb) 260 Body Mass Index (kg/m2) 38.4 Body Surface Area (m2) 2.3 Note: mg Last Documented: On 01/29/2022 8:21AM ; [facility] Results Includes: Results discussed during this encounter No Results Recorded For Specified Dates History of Present Illness Includes: History of Present Illness from this encounter DIANDRA Toledo is a 51 year old male. - Allergy list reviewed - Problem list reviewed - Medication list reviewed - Previous history of new onset pain 2020 Injury is not work related or an automotive accident - Pain is constant (100% of the time) - Pain is dull, aching - Patient pain level from 1-10: 2 - No previous treatment. Patient was last seen in August of this past year he had a previous disc herniation at C5-C6 and had an epidural injection which he got significant relief with these as he got about 80% relief up until about a month ago and the symptoms can return that were radiating down the left arm to the thumb and index finger he has done some chiropractic treatment as well as physical therapy in the past therapy did not help him he has some difficulties looking to the right side at this point in time he rates his pain level 2-3 out of 10 it bothers him a lot specially with sitting on hard surfaces Social History Description Last Updated No recent change in diet 01/29/2022 Last Documented On 2 2:44PM ; [facility] Not a current smoker. 01/29/2022 Last Documented On 2 2:44PM ; [facility] Not a smoker 01/29/2022 Last Documented On 2 2:44PM ; [facility] Exercising regularly 09/13/2020 Last Documented On 2 8:12AM ; [facility] No caffeine use 09/13/2020 Last Documented On 2 8:12AM ; [facility] No recent change in diet 09/13/2020 Last Documented On 2 8:12AM ; [facility] Non-smoker 09/13/2020 Last Documented On 2 8:12AM ; [facility] Not a current smoker. 09/13/2020 Last Documented On 2 8:12AM ; [facility] Not using alcohol 09/13/2020 Last Documented On 2 8:12AM ; [facility] Not using drugs 09/13/2020 Last Documented On 2 8:12AM ; [facility] No tobacco use 05/23/2012 Last Documented On 2 8:12AM ; [facility] Smoking status : Never smoked/ Recode: 4 05/23/2012 Last Documented On 2 8:12AM ; [facility], [facility] Procedures and Surgical History Includes: Procedures from this encounter Procedures Code Diagnosis Performing Provider Service L ocation Service Date no intervention and counseling on cessation of tobacco use 4000F Last Documented On 2 8:13AM ; [facility] use of tobacco assessment performed 1000F Last Documented On 2 8:13AM ; [facility], [facility] no influenza immunization patient refuse d Last Documented On 2 10:39AM ; [facility] patient not screened for future fall risk 3288F Last Documented On 2 8:13AM ; [facility] follow-up visit in one month with PCP fo r elevated BP Last Documented On 2 8:21AM ; [facility] referral to physician Last Documented On 2 8:21AM ; [facility] weight control goals: not including weig ht gain Last Documented On 2 8:13AM ; [facility] an X-ray was performed 31795 Last Documented On 2 10:39AM ; [facility] an MRI was performed [id number] Last Documented On 2 10:39AM ; [facility] Surgical History Last Updated History of History of Gallbladder 2021 Last Documented On 2 2:44PM ; [facility] Medical History Includes: Medical History addressed during this encounter Description Last Updated Past medical history non-contributory Last Documented On 2 2:44PM ; [facility] History of Gallbladder 09/13/2020 Last Documented On 2 8:12AM ; [facility] Hypertension 09/13/2020 Last Documented On 2 8:12AM ; [facility] No recent immunization for flu 1 Last Documented On 2 8:12AM ; [facility] No recent immunization for pneumococcal pneumonia 09/13/2020 Last Documented On 2 8:12AM ; [facility] Family History Includes: Family History addressed during this encounter Description Last Updated No significant family history 01/29/2022 Last Documented On 2 2:44PM ; [facility] Review of Systems Includes: Review of [...] No complaint of seasonal allergic reaction. reviewed 01/29/22 Mental Status Includes: Mental Status from this encounter Description No anxiety Functional Status Includes: Functional Status from this encounter No Functional Status Recorded Physical Exam Includes: Physical Exam from this encounter Allergies Includes: Active Allergies No Known Allergies Encounters Encounter Provider Location Date Check-In Time Check-Out Time Diagnosis Follow Up Leon Paula PA-C [facility] 01/30/20 22 8:09AM 8:39AM Underweight Insurance Includes: Active Insurance Policies Plan Name Member ID Group # Subscriber Relationship Effect terese Dates - [facility] [id number] 1 [id number] Geovani Jauregui 07/22/2020 - Unknown Clinical Notes Includes: Clinical Notes from this encounter No Clinical Notes Recorded
--- OUTSIDE RECORDS SUMMARY | 2024-02-19 09:16 | XMS_ITS | Clinical Summary ---
Author Organization [facility] , [facility] Address [address] [place] [address] Phone Care Team Providers Care Afternoon Nanny Name Role Phone Teofilo De La Rosa Unavailable Unavailable Rony Moore MD Unavailable [phone] Reason for Visit and Chief Complaint Follow Up Problems Includes: Problems addressed during this encounter and other active Problems All Visits Onset Date Resolved Date Provider Condition S tatus Neck Pain 09/13/2020 Rony Moore MD Active Last Documented On 1 8:43AM ; [facility] Joint Pain, Localized in the Left Shoulder 08/23/2020 Rony Moore MD Active Last Documented On 1 1:53PM ; [facility] Plan of Treatment No Plan of Treatment Recorded Assessments Includes: Assessments from this encounter No Assessments Recorded Medical Equipment - Implanted Devices Includes: Current Devices No Medical Equipment Recorded Medications Includes: Medications discussed during this encounter and other current Medications Current Medications (continue as prescribed) Atorvastatin Calcium 40 MG Oral Tablet 12/11/2021 Pr ovider: Diagnosis: Last Documented On 2 9:50AM By [facility] Lisinopril-hydroCHLOROthiazide 20-12.5 MG Oral Tablet 12/11/2021 Provider: Diagnosis: Last Documented On 2 9:50AM By Yenny Gill ; [facility] Medications Administered Includes: Administered Medications from [...] Allergies Includes: Active Allergies No Known Allergies Insurance Includes: Active Insurance Policies Plan Name Member ID Group # Subscriber Relationship Effect terese Dates 1 - [facility] [id number] 1 [id number] Geovani Toledo Self 07/22/2020 - Unknown Clinical Notes Includes: Clinical Notes from this encounter No Clinical Notes Recorded
[2024-02-19 09:36] LABS: Basophils # 0.1 K/mm3 (0-0.2); Eosinophils # 0.2 K/mm3 (0.0-0.4); Eosinophils % 3.2 % (0.1-12.0); Hematocrit 50.1 % (42.0-52.0); Hemoglobin 16.4 g/dL (14.1-18.0); Lymphocytes # 1.9 K/mm3 (0.7-4.5); Lymphocytes % 24.6 % (10-50); Mean Corpuscular HGB Conc 32.7 g/dL (31.8-35.4); Mean Corpuscular Volume 94.7 fl (80-94); Mean Platelet Volume 8.3 fl (7.4-10.4); Monocytes # 0.4 K/mm3 (0.1-1.0); Monocytes % 5.7 % (1.7-9.3); Neutrophils % 65.6 % (37.0-80.0); Platelet Count 226 K/mm3 (142-424); Red Blood Count 5.29 M/mm3 (4.60-6.20); Red Cell Distribution Width 13.9 % (11.5-17.5); White Blood Count 7.7 K/mm3 (4.8-10.8)
[2024-02-19 10:11] LABS: Alanine Aminotransferase 30 U/L (12-78); Albumin Level 3.6 g/dl (3.5-5.0); Albumin/Globulin Ratio 1.3 (1.1-1.8); Alkaline Phosphatase 109 U/L (38-126); Anion Gap 10.2 mEq/L (5-15); Aspartate Amino Transferase 28 U/L (17-59); Bilirubin,Total 0.8 mg/dl (0.2-1.3); Blood Urea Nitrogen 17 mg/dl (9-20); Calcium 9.1 mg/dl (8.4-10.2); Carbon Dioxide 32 mmol/L (22.0-30.0); Chloride 104 mmol/L (98-107); Estimated Glomerular Filt Rate 53 ml/min (>60); GFR (African American) 64 ML/MIN (>60); Globulin 2.7 g/dL (1.3-3.2); Glucose 99 mg/dl (74-100); Potassium 4.2 mmoL/L (3.5-5.1); Sodium 142 mmol/L (136-145); Total Protein,Serum 6.3 g/dl (6.3-8.2)
[2024-02-19 10:40] LABS: Thyroid Stimulating Hormone 1.97 uIU/mL (0.465-4.68)
[2024-02-19 11:35] LABS: Hemoglobin A1C 5.3 % (4.0-6.0)
[2024-02-20 12:38] LABS: Sex Hormone Binding Globulin 35.7 nmol/L (19.3-76.4); Testosterone,Total 432 ng/dL (264-916)
== END 2024-02-19 23:59 | disposition home or self-care (01) ==
LOC: LAB 09:13
PROVIDERS: Physician Assistant; PCP Family Medicine; Visit Provider Urology
DX: N40.0 Benign prostatic hyperplasia without lower urinary tract symptoms (principal); N52.9 Male erectile dysfunction, unspecified; R73.01 Impaired fasting glucose
CPT/HCPCS: 36415; 80050; 80053; 83036; 84270; 84403; 84443; 85025

== ENCOUNTER 2024-04-30 11:11 | Outpatient (CLI) | payer BC, SELFPAY ==
[2024-05-01 12:14] LABS: Testosterone,Total 464 ng/dL (264-916)
== END 2024-04-30 23:59 | disposition home or self-care (01) ==
LOC: LAB 11:12
PROVIDERS: PCP Family Medicine; Visit Provider Urology
DX: R79.89 Other specified abnormal findings of blood chemistry (principal)
CPT/HCPCS: 36415; 84403

== ENCOUNTER 2024-05-04 09:44 | Outpatient (CLI) | payer BC, SELFPAY ==
[2024-05-04 10:24] LABS: Basophils # 0.1 K/mm3 (0-0.2); Basophils % 1.1 % (0.1-2.0); Eosinophils # 0.2 K/mm3 (0.0-0.4); Eosinophils % 2.5 % (0.1-12.0); Hematocrit 47.3 % (42.0-52.0); Hemoglobin 15.5 g/dL (14.1-18.0); Lymphocytes # 1.7 K/mm3 (0.7-4.5); Lymphocytes % 23.1 % (10-50); Mean Corpuscular HGB Conc 32.8 g/dL (31.8-35.4); Mean Corpuscular Hemoglobin 27.5 pg (27.0-31.2); Mean Corpuscular Volume 83.9 fl (80-94); Mean Platelet Volume 7.8 fl (7.4-10.4); Monocytes # 0.6 K/mm3 (0.1-1.0); Monocytes % 8.7 % (1.7-9.3); Neutrophils # 4.6 K/mm3 (1.8-7.8); Neutrophils % 64.5 % (37.0-80.0); Platelet Count 220 K/mm3 (142-424); Red Blood Count 5.64 M/mm3 (4.60-6.20); White Blood Count 7.1 K/mm3 (4.8-10.8)
== END 2024-05-04 23:59 | disposition home or self-care (01) ==
LOC: LAB 09:45
PROVIDERS: PCP Family Medicine; Visit Provider Urology
DX: N40.0 Benign prostatic hyperplasia without lower urinary tract symptoms (principal)
CPT/HCPCS: 36415; 85025

== ENCOUNTER 2024-06-19 09:36 | Emergency (ER) | payer BC, SELFPAY ==
[2024-06-19] VITALS (9 sets, daily range): BP systolic 100–137; BP diastolic 58–85; PULSE 62–91; RESP 12–21; TEMP 36.7; O2SAT 92–99; BMI 39.9
--- NOTE | 2024-06-19 09:35 | ECG_ITS ---
APPROVED REPORT Exam: Resting ECG HR:86 bpm ECG Measurements Heart Rate 86 AXES ME 143 P 42 QRSd 90 QRS 21 QT 325 T 44 QTc 368 Conclusion SINUS RHYTHM LOW QRS VOLTAGE IN PRECORDIAL LEADS [QRS DEFLECTION < 1.0 mV IN CHEST LEADS] BORDERLINE ECG Electronically signed by : АЛЕКСАНДР BURCIAGA, 06/20/2024 17:29:42
--- NOTE | 2024-06-19 09:49 | XR_ITS ---
FINAL REPORT CLINICAL HISTORY: chest pain into back COMPARISON: 05/08/2021 FINDINGS: PA and lateral views of the chest were obtained. The cardiac and mediastinal silhouettes are within normal limits. The lungs are clear. There is no pleural effusion or pneumothorax. No acute osseous abnormality is identified. IMPRESSION: No radiographic evidence of acute cardiac or pulmonary disease. Reviewed, Interpreted and Dictated by Soni Cabrera MD Transcribed by Jud Alvarez Authenticated and [facility]
--- NOTE | 2024-06-19 09:49 | CT_ITS ---
FINAL REPORT TECHNIQUE: Axial imaging of the chest is obtained after the administration of contrast. 3-D MIP reformatted images were also obtained and reviewed per PE protocol. CLINICAL HISTORY: chest pain into back COMPARISON: None FINDINGS: There is no evidence of aortic aneurysm or dissection. Evaluation for pulmonary embolism is limited secondary to contrast bolus timing. Heart size is normal. There is no mediastinal, hilar, or axillary lymphadenopathy. The lungs are clear. There are no suspicious pulmonary nodules. No consolidations are seen. There is no pleural or pericardial effusion. No acute osseous abnormality. IMPRESSION: No aortic aneurysm or dissection. No acute intrathoracic abnormality. Reviewed, Interpreted and Dictated by Soni Cabrera MD Transcribed by Yany Newton Authenticated and [facility]
--- NOTE | 2024-06-19 09:54 | CT_ITS ---
FINAL REPORT TECHNIQUE: Pre-and postcontrast images of the abdomen through the pelvis were performed by computed tomography. Extensive 3-D reconstruction images were performed. A CTA was performed. This study was performed with techniques to keep radiation doses as low as reasonably achievable (ALARA). Individualized dose reduction techniques using automated exposure control or adjustment of mA and/or kV according to the patient's size were employed. CLINICAL HISTORY: Chest pain into back, dissection concern COMPARISON: CT abdomen pelvis 01/31/2023 FINDINGS: The liver is homogeneous. The gallbladder is absent. The spleen, right adrenal gland, and pancreas are without acute abnormality. A left adrenal nodule is stable. There is no hydronephrosis or renal mass. Several right renal cysts are noted. The GI tract is without evidence of obstruction. The appendix is normal. There is no acute GI tract abnormality. There is no lymphadenopathy. No ascites is seen. No acute osseous abnormality CTA: The abdominal aorta is proper caliber. There is no evidence of dissection. The mesenteric arteries, renal arteries, and iliac arteries are patent without evidence of stenosis. IMPRESSION: No evidence of abdominal aortic aneurysm or dissection. No acute intra-abdominal or intrapelvic abnormality. Reviewed, Interpreted and Dictated by Soni Cabrera MD Transcribed by Yany Newton Authenticated and [facility]
[2024-06-19] MEDS: MORPHINE 4MG/ML SYRINGE 4 MG IV (10:00)
[2024-06-19 10:06] LABS: Albumin Level 4.3 g/dl (3.5-5.0); Chloride 105 mmol/L (98-107)
[2024-06-19 10:07] LABS: Potassium 4.4 mmoL/L (3.5-5.1); Sodium 139 mmol/L (136-145)
[2024-06-19 10:09] LABS: Blood Urea Nitrogen 15 mg/dl (9-20); Creatinine Clearance Estimated 111 mL/min (50-200); Estimated Glomerular Filt Rate 57 ml/min (>60); GFR (African American) 69 ML/MIN (>60)
[2024-06-19 10:10] LABS: Alanine Aminotransferase 32 U/L (12-78); Albumin/Globulin Ratio 1.4 (1.1-1.8); Alkaline Phosphatase 104 U/L (38-126); Anion Gap 9.4 mEq/L (5-15); Aspartate Amino Transferase 40 U/L (17-59); Basophils # 0.1 K/mm3 (0-0.2); Basophils % 0.9 % (0.1-2.0); Calcium 9.1 mg/dl (8.4-10.2); Carbon Dioxide 29 mmol/L (22.0-30.0); Eosinophils # 0.3 K/mm3 (0.0-0.4); Eosinophils % 3.1 % (0.1-12.0); Glucose 108 mg/dl (74-100); Hemoglobin 15.6 g/dL (14.1-18.0); Lymphocytes % 24.1 % (10-50); Mean Corpuscular HGB Conc 32.5 g/dL (31.8-35.4); Mean Corpuscular Hemoglobin 26.3 pg (27.0-31.2); Mean Corpuscular Volume 81.2 fl (80-94); Mean Platelet Volume 7.8 fl (7.4-10.4); Monocytes # 0.6 K/mm3 (0.1-1.0); Monocytes % 7.1 % (1.7-9.3); Neutrophils # 5.5 K/mm3 (1.8-7.8); Neutrophils % 64.9 % (37.0-80.0); Platelet Count 224 K/mm3 (142-424); Red Blood Count 5.92 M/mm3 (4.60-6.20); Red Cell Distribution Width 16.2 % (11.5-17.5); Total Protein,Serum 7.3 g/dl (6.3-8.2); White Blood Count 8.5 K/mm3 (4.8-10.8)
--- NOTE | 2024-06-19 10:10 | ED_ITS ---
Discharge Plan Disposition Patient Disposition: Home, Self-Care Condition: Good Chief Complaint: Chest Pain Prescriptions Prescriptions: No Action lisinopril-hydrochlorothiazide 20-12.5 mg tablet 1 tab PO DAILY atorvastatin 40 mg tablet 40 mg PO DAILY tadalafil [Cialis] 5 mg tablet 5 mg PO DAILY 90 Days Qty: 90 1RF testosterone [AndroGel] 20.25 mg/1.25 gram (1.62 %) gel in metered-dose pump 2 pump topical DAILY 30 Days Qty: 75 3RF Rx Instructions: apply 1 pump amount over max area of EACH upper arm and shoulder Referrals Follow up/Referrals: Marily De La Rosa MD [Primary Care Provider] - See instructions Activity Restrictions/Add. Instructions Additional Instructions/Restrictions: As discussed please follow-up with your primary care provider. Please discuss possible cardiology follow-up with them regarding your chest pain. Should your symptoms worsen please return to ED Clinical Impressions Clinical Impression: Chest pain Qualifiers: Chest pain type: unspecified Qualified Code(s): R07.9 - Chest pain, unspecified Instructions Patient Instructions: DI for Atypical Chest Pain Print Language Print Language: Bots[place] Discharge ED Provider: Kory Pedroza [facility] General Chief Complaint: Chest Pain Stated Complaint: Chest Pain Time Seen by Provider: 06/19/24 09:39 Mode of Arrival: Ambulatory Source of Information: Patient Limitations: No Limitations Description of Symptoms (Recalled from ER Triage Doc. by RN): Patient reports shortness of breath and midsternal chest pain for a couple of days. States that anything he does causes him to get real short of breath. Denies any heart or lung problems. History of Present Illness HPI narrative: 54yoM patient presents with a chief complaint of chest pain that has been ongoing for a couple of days. The pain worsened today while putting wood in his stove, prompting him to seek medical attention. He describes the pain as variable, sometimes feeling like crushing and other times as a more generalized discomfort. The pain is localized to one spot in the anterior chest and occasionally radiates to the back, although it is not currently radiating at the time of the visit. The patient notes that the pain typically worsens with physical activity, such as carrying heavy objects. He recalls feeling winded after carrying 30 pounds of items into his house the previous day. The pain eases up when he is sitting still. He denies any associated nausea, vomiting, or abdominal pain. PMH HTN. He has not experienced pain like this before and has not taken any pain medications for it at home. He denies any recent fevers, cough, runny nose, or stuffy nose. Please note that above description of symptoms, in this electronic medical record under categorization of recalled from ER triage doctor by RN are reflective of an initial nursing assessment, however, is not reflective of my full history and physical exam that was personally taken and clarified. Consequentially, this preceding description of symptoms, which may include the patient's categorized chief complaint in the EMR, do not reflect my personal clinical impression, and the ultimate description of history of present illness and patient stated complaints should be deferred to this section of the note. Unless stated otherwise or congruent with this section of the note, additional signs, symptoms, or incongruence should be interpreted as inaccurate with my clinical impression. Related Data Home Medications ?Medication ?Instructions ?Recorded ?Confirmed atorvastatin 40 mg tablet 40 mg PO DAILY Cholesterol 10/15/17 05/04/24 lisinopril 20 1 tab PO DAILY Hypertension 10/15/17 05/04/24 mg-hydrochlorothiazide 12.5 mg tablet Previous Rx's ?Medication ?Instructions ?Recorded tadalafil 5 mg tablet (Cialis) 5 mg PO DAILY 90 days #90 tabs 05/04/24 testosterone (AndroGel) 2 pump topical DAILY 30 days #75 05/05/24 grams Allergies Allergy/AdvReac Type Severity Reaction Status Date / Time No Known Allergies Allergy Verified 05/04/24 09:35 [facility] [place] Disclaimer: The information contained in this section may have been updated after the patient was seen, as this information can be updated by other users. Medical History SHWETA (obstructive sleep apnea) COVID-19 COVID 05/11 Kidney stone Hypertension Surgical History H/O colonoscopy Hx of cholecystectomy History of ankle surgery right ankle 2014 H/O hand surgery right hand in 1993 and 1996 Family History Mother Factor V Leiden Hypertension Heart disease Stroke Social History (Reviewed 05/04/24 @ 09:37 by LUANN Tucker Smoking Status: Never smoker alcohol intake: never current occupational status: employed Other Medical History Have you received the Flu Vaccine for this season: No Have you received the Pneumonia Vaccine: No ROS Obtained: Yes Systems reviewed as appropriate & no additional complaints except as documented Physical Exam General General appearance: alert and in no apparent distress Head Head exam: atraumatic and normocephalic Eye Eye exam: Present normal appearance and EOMI ENT ENT exam: Present normal exam Neck Neck exam: Present normal inspection Chest Chest inspection: Present normal inspection and symmetric chest wall rise Respiratory Respiratory exam: Present normal lung sounds bilaterally Cardiovascular Cardiovascular exam: Present regular rate, normal rhythm, normal heart sounds, +S1 and +S2; Absent JVD Abdominal Exam Abdominal exam: Present soft and normal bowel sounds; Absent distention, tenderness, guarding or rebound exam: Present deferred Extremities Exam Extremities exam: Present normal inspection and full ROM; Absent tenderness Back Exam Back exam: Present normal inspection Neurological Exam Neurological exam: Present alert and oriented X3 Psychiatric Psychiatric exam: Present normal affect and normal mood Skin Skin exam: Present warm, dry, intact and normal color; Absent rash HEART Score HEART Score HEART Score assessment performed?: Yes History (anamnesis): Slightly suspicious ECG: Normal Age: 45-65 years Risk factors: 1-2 risk factors Troponin: </= normal limit HEART Score: 2 Critical Care Critical Care Time Critical Care Time: No Medical Decision Making Medical Records Medical records reviewed: Yes I reviewed the patient's medical records. Arsenio Inquiry Pt receiving controlled substance: No Arsenio was queried for this patient: No Vital Signs Vital Signs: 06/19/24 09:36 06/19/24 09:44 06/19/24 09:45 Temperature 98.0 F Temperature Source Oral Pulse Rate 82 77 Pulse Rate [Radial] 91 H Respiratory Rate 17 14 12 Blood Pressure Blood Pressure [Right Arm] 137/85 Blood Pressure Mean Blood Pressure Mean [Right Arm] 102 Blood Pressure Source [Right Arm] Automatic Cuff Blood Pressure Position [Right Arm] Sitting 02 Sat by Pulse Oximetry 99 99 99 Oxygen Delivery Method Room Air 06/19/24 10:00 06/19/24 10:01 06/19/24 11:00 Temperature Temperature Source Pulse Rate 65 78 75 Pulse Rate [Radial] Respiratory Rate 18 21 Blood Pressure 111/68 111/68 108/66 L Blood Pressure [Right Arm] Blood Pressure Mean 82 75 Blood Pressure Mean [Right Arm] Blood Pressure Source [Right Arm] Blood Pressure Position [Right Arm] 02 Sat by Pulse Oximetry 96 97 94 L Oxygen Delivery Method 06/19/24 11:31 06/19/24 12:01 Temperature Temperature Source Pulse Rate 75 76 Pulse Rate [Radial] Respiratory Rate Blood Pressure 100/58 L 107/77 L Blood Pressure [Right Arm] Blood Pressure Mean 73 85 Blood Pressure Mean [Right Arm] Blood Pressure Source [Right Arm] Blood Pressure Position [Right Arm] 02 Sat by Pulse Oximetry 97 92 L Oxygen Delivery Method Lab Data Labs: Lab Results 06/19/24 09:45: WBC 8.5, RBC 5.92, Hgb 15.6, Hct 48.0, MCV 81.2, MCH 26.3 L, MCHC 32.5, RDW 16.2, Plt Count 224, MPV 7.8, Neut % (Auto) 64.9, Lymph % (Auto) 24.1, [place] % (Auto) 7.1, Eos % (Auto) 3.1, Baso % (Auto) 0.9, Neut # (Auto) 5.5, Lymph # (Auto) 2.0, [place] # (Auto) 0.6, Eos # (Auto) 0.3, Baso # (Auto) 0.1, Sodium 139, Potassium 4.4, Chloride 105, Carbon Dioxide 29, Anion Gap 9.4, BUN 15, Creatinine 1.30 H, Estimated Creat Clear 111, Estimated GFR 57 L, Est GFR ( Amer) 69, Glucose 108 H, Calcium 9.1, Total Bilirubin 1.0, AST 40, ALT 32, Alkaline Phosphatase 104, Troponin I < 0.01, NT-Pro-B Natriuret Pep < 20.0, Total Protein 7.3, Albumin 4.3, Globulin 3.0, Albumin/Globulin Ratio 1.4 06/19/24 09:45 06/19/24 09:45 Response Orders (Tests/Meds): ED MEDICATIONS Generic Name Dose Route Start Last Admin Trade Name Freq PRN Reason Stop Dose Admin Sodium Chloride 10 ml 06/19/24 10:40 Sodium Chloride 0.9% 10ml Syr (Rad Only) IV 07/19/24 10:39 NEEDED PRN Maintain IV Site Discontinued Medications Generic Name Dose Route Start Last Admin Trade Name Freq PRN Reason Stop Dose Admin Iopamidol 160 ml 06/19/24 10:40 06/19/24 10:43 Iopamidol-370 (76%);100ml Bottle IV 06/19/24 10:41 160 ml ONCE ONE Administration Morphine Sulfate 4 mg 06/19/24 09:56 06/19/24 10:00 Morphine 4mg/Ml Syringe IV 06/19/24 09:57 4 mg ONCE ONE Administration Sodium Chloride 100 ml 06/19/24 10:40 06/19/24 10:43 0.9 % Sodium Chloride 50 Ml Vial IV 06/19/24 10:41 100 ml ONCE ONE Administration ORDERS Category Date Time Status CT angio abdomen pelvis Stat Cat Scan 06/19/24 09:[address] angio chest - dissection Stat Cat Scan 06/19/24 09:49 Completed XR chest 2V Stat Exams 06/19/24 09:49 Completed Complete Blood Count Auto Diff Stat Lab 06/19/24 09:45 Completed Comprehensive Metabolic Panel Stat Lab 06/19/24 09:45 Completed HIV (1&2) Antibody Rapid Stat Lab 06/19/24 09:35 Received Hep C Ab with Reflex to RNA Stat Lab 06/19/24 09:35 Received NT Pro Brain Natriuretic Pep. Stat Lab 06/19/24 09:45 Completed Troponin I Stat Lab 06/19/24 09:45 Completed ECG Data Tracing #1: ECG Narrative: Normal sinus rhythm, normal axis, normal intervals, no noted ST elevation MDM Narrative Medical Decision Narrative: Patient with history and exam per above presenting for evaluation of chest pain Diagnoses considered include ACS, GERD, upper respiratory virus, pneumonia, dissection, aneurysm, musculoskeletal pain ED workup and treatment included: As above Labs were independently interpreted by me, significant for negative troponin, no noted anemia or leukocytosis, CBC nonactionable. CMP without acute actionable electrolyte abnormality, mildly elevated creatinine however improved from prior. No ESTEPHANIA. Imaging was independently visualized and interpreted by me, significant for chest x-ray without noted acute cardiopulmonary process on my review. Please refer to radiology report for full details. My clinical impression at this time is most consistent with chest pain. On reassessment patient states he is feeling okay at this time. Workup today has been reassuring. Patient is going to follow-up with his PCP. Discussed cardiology follow-up and he will follow-up with his PCP and have them refer him to cardiology. Patient given strict instructions to return to ED if symptoms worsen. Discharged home with hemodynamically stable vitals. I discussed my clinical impression with patient and answered all questions. At this time, the evidence for any other entities in the differential is insufficient to warrant any further testing or ED observation. This was explained to the patient. The patient was advised that persistent or worsening symptoms require further evaluation.
[2024-06-19 10:19] LABS: NT Pro Brain Natriuretic Pep. < 20.0 pg/mL (0-125)
[2024-06-19 10:31] LABS: Troponin I < 0.01 ng/ml (0.00-0.034)
[2024-06-19] MEDS: IOPAMIDOL-370 (76%);100ML BOTTLE 160 ML IV (10:43)
[2024-06-19] MEDS: 0.9 % SODIUM CHLORIDE 50 ML VIAL 100 ML IV (10:43)
[2024-06-19 15:29] LABS: HIV (1&2) Antibody Rapid NONREACTIVE (NONREACTIVE)
[2024-06-20 03:36] LABS: HCV Ab Non Reactive (Non Reactive)
== END 2024-06-19 12:44 | disposition home or self-care (01) ==
PROVIDERS: Emergency Provider Student in an Organized Health Care Education/Training Program; PCP Family Medicine
DX: R07.9 Chest pain, unspecified (principal); R06.02 Shortness of breath
CPT/HCPCS: 71046; 71275; 74174; 80053; 83880; 84484; 85025; 86803; 87389; 93005; 96374; 99285; J2270; Q9967

== ENCOUNTER 2024-08-24 11:51 | Outpatient (CLI) | payer BC, SELFPAY ==
[2024-08-24 12:09] LABS: Basophils # 0.1 K/mm3 (0-0.2); Basophils % 0.9 % (0.1-2.0); Eosinophils # 0.3 K/mm3 (0.0-0.4); Eosinophils % 3.3 % (0.1-12.0); Hematocrit 46.8 % (42.0-52.0); Hemoglobin 14.6 g/dL (14.1-18.0); Lymphocytes # 1.7 K/mm3 (0.7-4.5); Lymphocytes % 21.7 % (10-50); Mean Corpuscular HGB Conc 31.2 g/dL (31.8-35.4); Mean Corpuscular Hemoglobin 25.2 pg (27.0-31.2); Mean Corpuscular Volume 80.8 fl (80-94); Mean Platelet Volume 9.9 fl (7.4-10.4); Monocytes # 0.6 K/mm3 (0.1-1.0); Monocytes % 7.9 % (1.7-9.3); Neutrophils # 5.2 K/mm3 (1.8-7.8); Neutrophils % 65.8 % (37.0-80.0); Platelet Count 236 K/mm3 (142-424); Red Blood Count 5.79 M/mm3 (4.60-6.20); Red Cell Distribution Width 16.2 % (11.5-17.5); White Blood Count 7.8 K/mm3 (4.8-10.8)
[2024-08-25 08:13] LABS: PSA, Free 0.52 ng/mL; Prostate Specific Ag 1.2 ng/mL (0.0-4.0); Testosterone,Total 455 ng/dL (264-916)
[2024-08-25 12:35] LABS: Sex Hormone Binding Globulin 35.4 nmol/L (19.3-76.4)
== END 2024-08-24 23:59 | disposition home or self-care (01) ==
LOC: LAB 11:52
PROVIDERS: PCP Family Medicine; Visit Provider Urology
DX: N52.9 Male erectile dysfunction, unspecified (principal); D75.1 Secondary polycythemia
CPT/HCPCS: 36415; 84153; 84154; 84270; 84403; 85025

== ENCOUNTER 2024-11-30 09:06 | Outpatient (CLI) | payer BC, SELFPAY ==
--- OUTSIDE RECORDS SUMMARY | 2024-11-30 09:07 | XMS_ITS | Data Portability ---
Author Organization [place] [facility] Address [address] [facility] [address] [place] [address] Assessment No assessment recorded. Plan of Treatment Reminders Order Date Submit Date Provider Last Modified By Organization Details Last Modified Time Details Appointments None recorded. Lab urinalysis panel, auto 2021 022 [email or web address] [facility], [address], [place], [address], 15:41:21 Referral None recorded. Procedures None recorded. Surgeries None recorded. Imaging CT, abdomen + pelvis, w/o contrast 2021 [facility] ([facility]), [address] [place] [address] [address], [place], [address], 15:35:45 Medication Orders Xyosted 100 mg/0.5 mL subcutaneou s auto-inject or [address] [facility], [address] [place] [address] [address], [place], [id number], 11:41:27 Patient TargetsNo targets recorded. Patient InstructionsNo instructions recorded. Reason for Referral None Reported. Results Created Date Observation Date Name Description Value Unit Range Abnormal Flag Note LastModifiedBy Organization Detail LastModifiedTime 04/18/2004/18/2022 urina lysis panel , auto Unknown Analyte Clean Catch Not Available [facility] [address] [facility] [address], [place], [address], 04/18/2022 15:10:27 04/18/20 22 04/18/2022 urina lysis panel , auto Unknown Analyte Yellow Not Available [facility] [address], [place], [address], 04/18/2022 15:10:27 04/18/20 22 04/18/2022 urina lysis panel , auto Unknown Analyte Clear Not Available [facility] [address], [place], [address], 04/18/2022 15:10:27 04/18/20 22 04/18/2022 urina lysis panel , auto Unknown Analyte 1.010 Not Available [facility] [address], [place], [address], 04/18/2022 15:10:27 04/18/20 22 04/18/2022 urina lysis panel , auto Unknown Analyte 1.003- 1.035 Not Available [facility] [address], [place], [address], 04/18/2022 15:10:27 04/18/20 22 04/18/2022 urina lysis panel , auto Unknown Analyte 7.0 Not Available [facility] [address], [place], [address], 04/18/2022 15:10:04/18/20 22 04/18/2022 urina lysis panel , auto Unknown Analyte 5.0-8. 0 Not Available [facility] [address], [place], [address], 04/18/2022 15:10:27 04/18/20 22 04/18/2022 urina lysis panel , auto Unknown Analyte Negati ve Not Available [facility] [address], [place], [address], 04/18/2022 15:10:04/18/20 22 04/18/2022 urina lysis panel , auto Unknown Analyte Negati ve Not Available [facility] [address], [place], [address], 04/18/2022 15:10:04/18/20 22 04/18/2022 urina lysis panel , auto Unknown Analyte Negati ve Not Available [facility] [address], [place], [address], 04/18/2022 15:10:04/18/20 22 04/18/2022 urina lysis panel , auto Unknown Analyte Negati ve Not Available [facility] [address], [place], [address], 04/18/2022 15:10:04/18/20 22 04/18/2022 urina lysis panel , auto Unknown Analyte Negati ve Not Available [facility] [address], [place], [address], 04/18/2022 15:10:04/18/20 22 04/18/2022 urina lysis panel , auto Unknown Analyte Negati ve Not Available [facility] [address], [place], [address], 04/18/2022 15:10:27 04/18/20 22 04/18/2022 urina lysis panel , auto Unknown Analyte 50 mg/dl Not Available [facility] [address], [place], [address], 04/18/2022 15:10:27 04/18/20 22 04/18/2022 urina lysis panel , auto Unknown Analyte Normal Not Available [facility] [address], [place], [address], 04/18/2022 15:10:04/18/20 22 04/18/2022 urina lysis panel , auto Unknown Analyte Negati ve Not Available [facility] [address], [place], [address], 04/18/2022 15:10:27 04/18/20 22 04/18/2022 urina lysis panel , auto Unknown Analyte Negati ve Not Available [facility] [address], [place], [address], 04/18/2022 15:10:04/18/20 22 04/18/2022 urina lysis panel , auto Unknown Analyte Normal Not Available [facility] [address], [place], [address], 04/18/2022 15:10:04/18/20 22 04/18/2022 urina lysis panel , auto Unknown Analyte Normal 1 mg/dl Not Available [facility] [address], [place], [address], 04/18/2022 15:10:27 04/18/20 22 04/18/2022 urina lysis panel , auto Unknown Analyte Negati ve Not Available [facility] [address], [place], [address], 04/18/2022 15:10:27 04/18/20 22 04/18/2022 urina lysis panel , auto Unknown Analyte Negati ve Not Available [facility] [address] [facility] [address], [place], [address], 04/18/2022 15:10:27 04/18/20 22 04/18/2022 urina lysis panel , auto Unknown Analyte Negati ve Not Available [facility] [address] [facility] [address], [place], [address], 04/18/2022 15:10:27 04/18/20 22 04/18/2022 urina lysis panel , auto Unknown Analyte Negati ve Not Available [facility] [address] [facility] [address], [place], [address], 04/18/2022 15:10:27 05/02/20 22 05/02/2022 CT, abdom en + pelvi s, w/o contr ast No observ ation record ed. [place] [id number], [place], [address], 05/03/2022 23:06:26 Result Notes None recorded. Procedures Surgical History Date Name Laterality Status Provider Name and Address Organization Details Recorded Time 05/10/20 17 EXTRA CORPOREAL SHOCKWAVE LITHOTRIPSY (SURG) completed Daily Rene [facility] 05/13/2017 15:37:17 03/14/20 17 CYSTOSCOPY, WITH URETEROSCOPY, WITH LITHOTRIPSY, WITH INSERTION OF URETERAL STENT (SURG) completed ASIM HOANG MD [address] [place], [address], [facility] 03/27/2017 10:18:54 cholecystectomy completed Valentina Wei [facility] 04/18/2022 15:09:49 Imaging Results Imaging Date Name Status LastModified by Organiz ation Details LastModified Time 05/02/2022 CT, abdomen + pelvis, w/o contrast completed [address], [place], [address], 05/03/2022 23:06:26 Procedure Notes None recorded. Medical Equipment None Reported. Allergies No known drug allergies Medications Name Sig Start Date Stop Date Status Note LastModified by Organization Details LastModified Time atorvastatin 40 mg tablet Take 1 tablet every day by oral route. active Not Available Not Available No t Available lisinopril 2.5 mg tablet Take 1 tablet every day by oral route. active Not Available Not Available No t Available testosterone active Not Available Not Available Not Available Vitamin D3 active Not Available Not Av ailable Not Available multivitamin active Not Available Not Available Not Available Vitamin B12 active Not Available Not A vailable Not Available Xyosted 100 mg/0.5 mL subcutaneous auto-injector 022 active Not Available Not Available Not Avai lable Vitals Date Recorded Body height Body mass index (BMI) Body weight Provider Name and Address Organization Details Last Updated DateTime 04/18/2022 175.26 cm 38.4 kg/m2 646797.02 g Valentina Wei [facility] 04/18/2022 15:08:28 Social History Question Answer Notes LastModified by Organizat ion Details LastModified Time Tobacco Smoking Status Never Smoker [facility] 15:09:41 What Is Your Relationship Status? [email or web address] Information not available 04/18/2022 Sex: Unknown Functional Status Question Answer Note LastModified by Organization D etails LastModified Time What is your level of alcohol consumption? None [email or web address] Information not available 04/18/2022 Mental Status None recorded. Family History Relationship Description Onset Age of this Age Resolved Age Notes LastModified by Organization Details LastModified Time Father No current problems or disability [email or web address] Not available 04/18 15:09:35 Mother No current problems or disability [email or web address] Not available 04/18 15:09:35 Medical History Condition Response Hypertension Y Kidney Stones Y Past Encounters Encounter ID Performer Location Encounter Start Date Encounter Closed Date Diagnosis/Indication Diagnosis SNOMED-CT Code Diagnosis ICD10 Code Diagnosis Note [id number] ASIM HOANG MD [facility] [address] [place] [address] 04/18/2022 13:59:37 04/18/2022 15:40:41 Urolithiasis 07662957 N20.[address] obtain a CT scan without contrast Right flank pain 3708551 09 R10.9 Male hypogonadism 469525 06 E29.1 Health Concerns Section Related Observation LastModified by Organization Detai ls LastModified Time None Recorded Concern Status LastModified by Organization Details LastModified Time None Recorded Advance Directives Directive None Recorded Payers Insurance Date Sequence Insurance Name Policy Number Policy Claudio Covered Member ID Claudio Member ID Guarantor Name 05/09/2022 1 [place] [id number] Geovani Toledo [id number] Geovani Toledo Notes Date Note Type Note Provider Name and Address Organization Details Recorded Time 04/18/2022 text/html Patient is here previously seen for urolithiasis.1 month back pain on the right side. He is concerned he may have a stone. He also has been receiving testosterone for hypogonadism is receiving 100 mg per week in divided doses of Depo testosterone 30/30/40 mg with 3 injections per week. We discussed switching him to weekly Xyosted 100mg. we will obtain a CT scan. ASIM HOANG MD [facility] [place], [address], [facility] 05/08/2022 10:28:48
[2024-12-01 06:37] LABS: Testosterone,Total 274 ng/dL (264-916)
[2024-12-01 07:10] LABS: Sex Hormone Binding Globulin 33.3 nmol/L (19.3-76.4)
[2024-12-02 03:36] LABS: Testosterone,Free 4.1 pg/mL (7.2-24.0)
== END 2024-11-30 23:59 | disposition home or self-care (01) ==
LOC: LAB 09:06
PROVIDERS: PCP Family Medicine; Visit Provider Urology
DX: D75.1 Secondary polycythemia (principal); N52.9 Male erectile dysfunction, unspecified; N40.0 Benign prostatic hyperplasia without lower urinary tract symptoms
CPT/HCPCS: 36415; 84270; 84402; 84403

== ENCOUNTER 2025-03-01 09:22 | Outpatient (CLI) | payer BC, SELFPAY ==
[2025-03-01 10:06] LABS: Hematocrit 48.0 % (42.0-52.0); Hemoglobin 14.2 g/dL (14.1-18.0); Immature Granulocytes % 0.5 %; Mean Corpuscular HGB Conc 29.6 g/dL (31.8-35.4); Mean Corpuscular Hemoglobin 24.2 pg (27.0-31.2); Mean Corpuscular Volume 81.8 fl (80-94); Nucleated Red Blood Cells % 0 %; Platelet Count 201 K/mm3 (142-424); Red Blood Count 5.87 M/mm3 (4.60-6.20); Red Cell Distribution Width-SD 44.0 fL; White Blood Count 7.4 K/mm3 (4.8-10.8)
[2025-03-02 08:17] LABS: PSA, Free 0.18 ng/mL; Testosterone,Total 599 ng/dL (264-916)
== END 2025-03-01 23:59 | disposition home or self-care (01) ==
LOC: LAB 09:23
PROVIDERS: PCP Family Medicine; Visit Provider Urology
DX: N40.0 Benign prostatic hyperplasia without lower urinary tract symptoms (principal); D75.1 Secondary polycythemia; N52.9 Male erectile dysfunction, unspecified
CPT/HCPCS: 36415; 84153; 84154; 84270; 84403; 85025